=== PATIENT | male | born 1995 | race Two or more races ===

== ENCOUNTER 2025-08-17 13:08 | Outpatient (REF) | payer MEDICAID, SELFPAY ==
--- OUTSIDE RECORDS SUMMARY | 2025-08-16 13:00 | XMS_ITS | Encounter Summary ---
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 Phone Unavailable Primary Care Provider Unavailabl e Reason for Visit * Reason Comments Cough Sore Throat Nasal Congestion Earache Encounter Details Date Type Department Care Team (Late st Contact Info) Description 08/16/2025 1:00 PM EDT Office Visit [facility] [address] [place] [address] Sridevi Lomeli ANP [address] [place] [address] Sore throat (Primary Dx); Elevated blood pressure reading without diagnosis of hypertension; Dietary counseling; Exercise counseling; Nasal congestion; Prediabetes; Hepatic steatosis; Need for hepatitis B screening test; Screening examination for STI; Balanitis Social History Tobacco Use Types Packs/Day Years Used Date Smoking Tobacco: Never Smokeless Tobacco: Never Tobacco Cessation:Counseling Given: Not Answered Sex and Gender Information Value Date Recorded Sex Assigned at Male 08/16/2025 9:46 AM EDT Legal Sex Male 2:04 AM EDT Gender Identity Male 08/16/2025 9:46 AM EDT Sexual Orientation Straight 08/16/2025 9: 46 AM EDT documented as of this encounter Last Filed Vital Signs Vital Sign Reading Time Taken Comments Blood Pressure 144/100 08/16/2025 2:00 PM EDT Pulse 96 08/16/2025 1:10 PM EDT Temperature 36.7 C (98.1 F) 08/16/2025 1:10 PM EDT Respiratory Rate 18 08/16/2025 1:10 PM EDT Oxygen Saturation 98% 08/16/2025 1:10 PM EDT Inhaled Oxygen Concentration - - Weight 100 kg (220 lb 12.8 oz) 08/16/2025 1:10 P M EDT Height 167.6 cm (5' 6 ) 08/16/2025 1:10 PM EDT Body Mass Index 35.64 08/16/2025 1:10 PM EDT documented in this encounter Patient Instructions * Patient Instructions* PAMELA Arias - 08/16/2025 1:00 PM EDT Images from the original note were not included. Por favor, disminuya el consumo de hortencia y aumente el ejercicio regular. La presi n arterial ideal ser a < 130/80. Para cheema presi n arterial, se recomienda llevar mariam dieta baja en hortencia, hacer ejercicio con regularidad, mamie cheema presi??n arterial en casa y mamie los medicamentos seg??n lo recetado. Si fuma, disminuya o deje de fumar. Llame a la cl kimani si la presi n arterial es frecuentemente >150/90. Vaya a urgencias/llame al 911 si > 170/100 y tiene s ntomas chrissy dolor de sandy, cambios visuales, dolor en el pecho, estado mental alterado o dificultad para respirar. documented in this encounter Progress Notes * PAMELA Arias - 08/16/2025 1:00 PM EDT Flo Rowan is 30 y.o. patient here today for sick visit. HPI Presents to establish care today and for eval of cough, sore throat. PMH: preDM, HLD, fatty liver, herniated disc Last in primary care 8 mos ago Meds: used to take metformin but caused GI side effects - was also rx'd insulin to take if needed but he says this was stopped b/c BG was controlled Surgical hx: pilonidal cyst removed and R wrist pinched nerve surg Family hx: dad - DM, mom - DM If sexually active - partners: BC method if applicable: vasectomy Eye exam: due - is supposed to wear glasses Non-smoker TODAY: Day b/f yesterday started w/ nasal congestion, then yesterday w/ sneezing that would cause chest tightness and back pain, ears and throat pain, +Dry mouth No fever/chills, yes tired Did take amoxicillin 3 doses at home. 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 Not sure of name of cream. Here w/ Omer Mcfadden RMA provided Estonian interpretation. Review of Systems Constitutional: Positive for fatigue. Negative for chills and fever. HENT: Negative for sore throat. Respiratory: Negative for cough and shortness of breath. Cardiovascular: Negative for chest pain. Gastrointestinal: Negative for constipation and diarrhea. Endocrine: Negative for polydipsia, polyphagia and polyuria. Genitourinary: Negative for dysuria. Musculoskeletal: Positive for myalgias. Problem List[1] Objective BP (!) 144/100 (BP Location: Right arm, Patient Position: Sitting, BP Cuff Size: Large adult) Pulse 96 Temp 98.1 ??F (36.7 ??C) (Oral) Resp 18 Ht 5' 6 (1.676 m) Wt 220 lb 12.8 oz (100 kg) SpO2 98% BMI 35.64 kg/m?? BP remained elevated on repeat 144/100 Physical Exam Vitals reviewed. Constitutional: General: He is not in acute distress. Appearance: Normal appearance. He is obese. He is not ill-appearing. HENT: Head: Normocephalic and atraumatic. Right Ear: Tympanic membrane, ear canal and external ear normal. Left Ear: Tympanic membrane, ear canal and external ear normal. Nose: Congestion present. Mouth/Throat: Pharynx: Posterior oropharyngeal erythema present. No oropharyngeal exudate. Eyes: General: No scleral icterus. Extraocular Movements: Extraocular movements intact. Pupils: Pupils are equal, round, and reactive to light. Neck: Comments: Mild submandibular lymphadenopathy Cardiovascular: Rate and Rhythm: Normal rate and regular rhythm. Pulmonary: Effort: Pulmonary effort is normal. No accessory muscle usage or respiratory distress. Breath sounds: Normal breath sounds. Musculoskeletal: Right lower leg: No edema. Left lower leg: No edema. Neurological: Mental Status: He is alert and oriented to person, place, and time. Cranial Nerves: No cranial nerve deficit. Psychiatric: Mood and Affect: Mood normal. Behavior: Behavior normal. Diagnoses and all orders for this visit: Sore throat Rapid flu Rapid COVID & strep negative OTC measures - hydrate, motrin/acetaminophen for sore throat/fever PRN, cough drops, honey/tea, etc. Call for worsening sx, SOB/ROTHMAN, fever not responding to OTC meds, need for triage. Elevated blood pressure reading without diagnosis of hypertension Asked him to monitor BP at home, sent cuff to [facility] pharmacy, and to keep log for PCP appt (gave log) Low salt diet and increase exercise - Blood Pressure kit; 1 each 2 times daily. 08/17/25 Addendum pt returned to clinic fo BP check b/c BP machine on backorder. Will send to [facility] or similar. If BP remains elevated > 130/80, would recommend losartan 25mg once daily pending renal function labs, or amlodipine 5mg start. Dietary counseling As above Exercise counseling Office Visit on 08/16/2025 Component Date Value Ref Range Status Rapid COVID Ag 08/16/2025 Negative Final Rapid Strep A Screen 08/16/2025 Negative Negative, None Detected Final Influenza A 08/16/2025 Negative Negative, Indeterminate Final Influenza B 08/16/2025 Negative Negative, Indeterminate Final Diagnoses and all orders for this visit: Sore throat Rapid COVID/flu/strep negative OTC measures - hydrate, motrin/acetaminophen for sore throat/fever PRN, cough drops, honey/tea, etc. Call for worsening sx, SOB/ROTHMAN, fever not responding to OTC meds, need for triage. - acetaminophen (Tylenol Extra Strength) 500 MG tablet; Take 1-2 tabs as needed every 8 hours, do not take more than 6 tabs in 24 hrs - POCT Rapid COVID Ag - POCT rapid strep A manually resulted - Influenza A (ID NOW Rapid Molecular) - Influenza B (ID NOW Rapid Molecular) Elevated blood pressure reading without diagnosis of hypertension As above - Blood Pressure kit; 1 each 2 times daily. Dietary counseling As below Exercise counseling Lifestyle recommendations to improve heart health & lower cholesterol: be as active as able, ideally exercise 150min moderate intensity or 75min vigorous intensity weekly; increase intake of vegetables, fruits, whole grains, fish. Nasal congestion - fluticasone (Flonase) 50 MCG/ACT nasal spray; Administer 1-2 sprays into each nostril Once per day. Shake gently. Before first use, prime pump. After use, clean tip and replace cap. Prediabetes - Hemoglobin A1c; Future - Lipid Panel, Standard; Future - FREESTYLE LITE test strip; Use to test blood sugar 2 times daily - Lancets misc; Use to test blood sugar 2 times daily - Alcohol Swabs 70 % pads; Use to clean skin for blood sugar checks - Blood Glucose Monitoring Suppl (FreeStyle Cubero Lite) w/Device kit; Use to test blood sugar 2 times daily - Basic Metabolic Panel; Future - CBC auto differential; Future Hepatic steatosis - Hepatic Function Panel; Future Need for hepatitis B screening test - Hepatitis B Core Antibody, Total; Future - Hepatitis B Surface Antibody, Qualitative; Future - Hepatitis B surface antigen, EIA; Future Screening examination for STI - Hepatitis C Antibody with Reflex to HCV, RNA, Quantitative, Real-Time PCR; Future - HIV-1/2 Antigen and Antibodies, Fourth Generation, with Reflexes; Future - Syphilis Screen; Future Balanitis - clotrimazole (Lotrimin) 1 % cream; Apply topically 2 times daily for 28 days. [1] Patient Active Problem List Diagnosis Elevated blood pressure reading without diagnosis of hypertension documented in this encounter Plan of Treatment Upcoming Encounters Date Type Department Care Team (Late st Contact Info) Description 08/24/2025 2:00 PM EDT Clinical Support [facility] [address] [place] [phone] 09/23/2025 9:30 AM EDT Office Visit [facility] [address] [place] [phone] Enriqueta Rice MD [address] [place] [phone] Scheduled Orders Name Type Priority Associated Diagnoses Orde r Schedule Hepatitis B Core Antibody, Total Lab Routine Need for hepatitis B screening test Expected: 08/16/2025 (Approximate), Expires: 08/16/2026 Hepatitis B Surface Antibody, Qualitative Lab Routine Need for hepatitis B screening test Expected: 08/16/2025 (Approximate), Expires: 08/16/2026 Hepatitis B surface antigen, EIA Lab Routine Need for hepatitis B screening test Expected: 08/16/2025 (Approximate), Expires: 08/16/2026 Hepatitis C Antibody with Reflex to HCV, RNA, Quantitative, Real-Time PCR Lab Routine Screening examination for STI Expected: 08/16/2025 (Approximate), Expires: 08/16/2026 HIV-1/2 Antigen and Antibodies, Fourth Generation, with Reflexes Lab Routine Screening examination for STI Expected: 08/16/2025 (Approximate), Expires: 08/16/2026 Syphilis Screen Lab Routine Screening examination for STI Expected: 08/16/2025 (Approximate), Expires: 08/16/2026 documented as of this encounter Procedures Procedure Name Priority Date/Time Associated Diagnosis Comments CBC WITH AUTO DIFFERENTIAL Routine 08/17/2025 1:18 PM EDT Prediabetes HEMOGLOBIN A1C Routine 08/17/2025 1:18 PM EDT Prediabetes HEPATIC FUNCTION PANEL Routine 08/17/2025 1:18 PM EDT Hepatic steatosis LIPID PANEL, STANDARD Routine 08/17/2025 1:18 PM EDT Prediabetes BASIC METABOLIC PANEL Routine 08/17/2025 1:18 PM EDT Prediabetes POCT INFLUENZA B (ID NOW RAPID MOLECULAR) Routine 08/16/2025 1:51 PM EDT Sore throat POCT INFLUENZA A (ID NOW RAPID MOLECULAR) Routine 08/16/2025 1:51 PM EDT Sore throat POCT RAPID COVID ANTIGEN Routine 08/16/2025 1:51 PM EDT Sore throat POCT RAPID STREP A Routine 08/16/2025 1: 51 PM EDT Sore throat documented in this encounter Results * (ABNORMAL) CBC auto differential (08/17/2025 1:18 PM EDT) White Blood Count 6.0 4.8 - 10.8 X10*3/uL [facility] Red Blood Count 6.07(H) 4.60 - 5.80 X10*6/uL [facility] Hemoglobin 17.7 14.0 - 18.0 g/dl [facility] Hematocrit 51.5 42.0 - 52.0 % [facility] Mean Corpuscular Volume 84.8 80.0 - 98.0 fL [facility] Mean Corpuscular Hemoglobin 29.2 27.0 - 33.0 pg [facility] Mean Corpuscular HGB Conc 34.4 31.0 - 36.0 g/dl [facility] Red Cell Distribution Width 11.9 11.0 - 16.0 % [facility] Platelet Count 220 160 - 400 X10*3/uL [facility] Mean Platelet Volume 12.3 9.4 - 12.4 fL [facility] Neutrophils Percent Auto 47.9 45 - 73 % [facility] Imm Gran Pct Auto 0.2 0.0 - 0.4 % [facility] Lymphocytes Percent Auto 36.3 20 - 40 % [facility] Monocytes Percent Auto 11.4(H) 2 - 11 % [facility] Eosinophils Percent Auto 3.4 0 - 4 % [facility] Basophils Percent Auto 0.8 0 - 2 % [facility] NRBC Pct Auto 0.0 0.0 - 0.2 /100WBC [facility] Neutrophils Absolute Auto 2.9 2.0 - 8.3 x10*3/uL [facility] Imm Gran Abs Auto 0.01 0.00 - 0.03 X10*3/uL [facility] Lymphocytes Absolute Auto 2.2 1.2 - 4.9 X10*3/uL [facility] Monocytes Absolute Auto 0.7 0.1 - 1.2 X10*3/uL [facility] Eosinophils Absolute Auto 0.2 0.0 - 0.4 X10*3/uL [facility] Basophils Absolute Auto 0.1 0.0 - 0.2 X10*3/uL [facility] NRBC Abs Auto 0.000 0.0 - 0.012 X10*3/uL [facility] Blood Venous blood specimen / Unknown 08/17/2025 1:18 PM EDT 08/17/2025 4:04 PM EDT us Sridevi SANTIAGO LAB BLOOD ORDERABLES Final Resul t [facility] [address] [place] [phone] [phone] * (ABNORMAL) Basic Metabolic Panel (08/17/2025 1:18 PM EDT) Sodium 139 135 - 145 mmol/L [facility] Potassium 4.9 3.3 - 5.1 mmol/L [facility] Chloride 101 96 - 108 mmol/L [facility] Carbon Dioxide 31(H) 22 - 29 mmol/L [facility] Anion Gap 12 12 - 20 [facility] Urea Nitrogen (BUN) 12 9 - 16 mg/dL [facility] Creatinine, Serum 1.28 0.5 - 1.4 mg/dL [facility] Estimated Glomerular Filt Rate >60 [facility] Comment:Chronic Kidney Disea se: Estimated GFR < 60 mL/min/1.24m2Zhqsto Kidney Disease: Estimated GFR < 15 mL/min/1.73m2 Glucose 298(H) 60 - 115 mg/dL [facility] Calcium 9.6 8.4 - 10.2 mg/dL [facility] Blood Venous blood specimen / Unknown 08/17/2025 1:18 PM EDT 08/17/2025 4:04 PM EDT us Sridevi Lomeli ANP LAB BLOOD ORDERABLES Final Resul t Performing Organization Address [facility] Co de Phone Number [facility] [address] [place] [phone] * (ABNORMAL) Hepatic Function Panel (08/17/2025 1:18 PM EDT) Pathologist [facility] Bilirubin, Total 0.6 0.0 - 1.0 mg/dL [facility] Bilirubin, Direct 0.2 0.0 - 0.5 mg/dL [facility] Aspartate Amino Transferase 67(H) 5 - 37 U/L [facility] Alanine Aminotransferase 199(H) 0 - 40 U/L [facility] Total Protein 7.8 6.5 - 8.0 g/dL [facility] Albumin Level 4.9 3.5 - 5.0 g/dL [facility] Alkaline Phosphatase 82 39 - 117 U/L [facility] Blood Venous blood specimen / Unknown 08/17/2025 1:18 PM EDT 08/17/2025 4:04 PM EDT Sridevi Lomeli [facility] LAB BLOOD ORDERABLES Final Resul t Performing Organization Address [facility] Co de Phone Number [facility] [address] [place] [phone] * (ABNORMAL) Lipid Panel, Standard (08/17/2025 1:18 PM EDT) Triglycerides 315(H) <150 mg/dL [facility] Comment:Desirable Triglyceri de: less than 150 mg/dLBorderline High Triglyceride 150-199 mg/dLHigh Triglyceride: 200-499 mg/dLVery High Triglyceride: greater than or equal to 5OO mg/dL Cholesterol 174 <200 mg/dL [facility] Comment:Desirable Cholestero l: less than 200 mg/dLBorderline High Cholesterol: 200-239 mg/dLHigh Cholesterol: greater than 239 mg/dL LDL Cholesterol Calculated 82 <100 mg/dL [facility] Comment:Desirable LDL: less than 100 mg/dLNear Optimal/Above Optimal LDL: 110- 129 mg/dLBorderline High LDL: 130-159 mg/dLHigh LDL: 160-189 mg/dLVery High LDL: greater than or equal to 190 mg/dL HDL Cholesterol 29(L) >40 mg/dL [facility] Comment:Desirable HDL: great er than 40 mg/dL Note: This HDL assay may give artificially low results in patients with liver disease. Blood Venous blood specimen / Unknown 08/17/2025 1:18 PM EDT 08/17/2025 4:04 PM EDT Sridevi Lomeli ANP LAB BLOOD ORDERABLES Final Resul t Performing Organization Address [facility] de Phone Number [facility] [address] [place] [phone] * (ABNORMAL) Hemoglobin A1c (08/17/2025 1:18 PM EDT) Hemoglobin A1c 9.8(H) <6.0 % [facility] Comment:Hemoglobin A1C Refer ence Range Adults: 4.8 - 6.0 % Non diabetic: < 6.0 % Goal: < 7.0 %Additional Action Suggested: > 8.0 %Note: Hemoglobin A1c results are invalid for patients with abnormal amounts of HbF. Blood transfusions may impact the HbA1c concentration in the patient sample. Estimated Average Glucose 235 mg/dL [facility] Comment:eAG = Estimated ave rage glucose which is %A1C expressed asaverage glucose, using the formula of the B2Z-ZypyesaSnnhmox Glucose study (ADAG), Diabetes Care, Vol.31,#8,Jul. 2007 Blood Venous blood specimen / Unknown 08/17/2025 1:18 PM EDT 08/17/2025 4:04 PM EDT Sridevi Lomeli ANP LAB BLOOD ORDERABLES Final Resul t Performing Organization Address [facility] Co de Phone Number [facility] [address] [place] [phone] * Influenza B (ID NOW Rapid Molecular) (08/16/2025 1:51 PM EDT) [facility] Influenza B Negative Negative, Indeterminate [facility] Swab 08/16/2025 1:51 PM EDT us Sridevi Lomeli ANP POINT OF CARE TEST ENTER/EDIT OR DERABLES Final Result Performing Organization Address [facility] Co de Phone Number [facility] [address] [place] [phone] * Influenza A (ID NOW Rapid Molecular) (08/16/2025 1:51 PM EDT) [facility] Influenza A Negative Negative, Indeterminate [facility] Swab 08/16/2025 1:51 PM EDT us Sridevi Lomeli ANP POINT OF CARE TEST ENTER/EDIT OR DERABLES Final Result Performing Organization Address [facility] Co de Phone Number [facility] [address] [place] [phone] * POCT rapid strep A manually resulted (08/16/2025 1:51 PM EDT) [facility] Rapid Strep A Screen Negative Negative, None Detected [facility] Swab 08/16/2025 1:51 PM EDT Sridevi Lomeli ANP POINT OF CARE TEST ENTER/EDIT OR DERABLES Final Result Performing Organization Address [facility] Co de Phone Number [facility] [address] [place] [phone] * POCT Rapid COVID Ag (08/16/2025 1:51 PM EDT) [facility] Rapid COVID Ag Negative [facility] Swab 08/16/2025 1:51 PM EDT us Sridevi Lomeli ANP POINT OF CARE TEST ENTER/EDIT OR DERABLES Final Result [facility] [address] [place] [phone] [phone] documented in this encounter Visit Diagnoses Diagnosis Sore throat- Primary Acute pharyngitis Elevated blood pressure reading without diagnosis of hypertension Dietary counseling Dietary surveillance and counseling Exercise counseling Nasal congestion Other diseases of nasal cavity and sinuses Prediabetes Other abnormal glucose Hepatic steatosis Other chronic nonalcoholic liver disease Need for hepatitis B screening test Screening examination for STI Balanitis Balanoposthitis documented in this encounter
--- OUTSIDE RECORDS SUMMARY | 2025-08-17 11:20 | XMS_ITS | Encounter Summary ---
Author Organization [email or web address] Address [address] [place] [address] Care Team Providers Care Optical Engineer Name Role Phone Unavailable Primary Care Provider Unavailabl e Reason for Visit * Reason Comments Blood Pressure Check Encounter Details Date Type Department Care Team (Latest Contact Info) Description 08/17/2025 11:20 AM EDT Clinical Support [facility] WALK-[facility] [address] [id number] Fernanda Martell RN Elevated blood pressure reading without diagnosis of hypertension [R03.0] Social History Tobacco Use Types Packs/Day Years Used Date Smoking Tobacco: Never Smokeless Tobacco: Never Sex and Gender Information Value Date Recorded Sex Assigned at Male 08/16/2025 9:46 AM EDT Legal Sex Male 2:04 AM EDT Gender Identity Male 08/16/2025 9:46 AM EDT Sexual Orientation Straight 08/16/2025 9: 46 AM EDT documented as of this encounter Last Filed Vital Signs Vital Sign Reading Time Taken Comments Blood Pressure 157/100 08/17/2025 11:16 AM EDT Pulse 89 08/17/2025 11:15 AM EDT Temperature 36.5 C (97.7 F) 08/17/2025 11:15 AM EDT Respiratory Rate 18 08/17/2025 11:15 AM EDT Oxygen Saturation 97% 08/17/2025 11:15 AM EDT Inhaled Oxygen Concentration - - Weight 100 kg (220 lb 12.8 oz) 08/17/2025 11:15 AM EDT Height 167.6 cm (5' 6 ) 08/17/2025 11:15 AM EDT Body Mass Index 35.64 08/17/2025 11:15 AM EDT documented in this encounter Progress Notes * Fernanda Martell RN - 08/17/2025 11:20 AM EDT SUBJECTIVE: Pt arrived to [facility] to do BP check due to BP monitor sent to our pharmacy is currently on back order and pt was advised to return back to clinic in the morning to have their BP recheck. Pt was seen at [facility] on 08/16/25, BP noted 144/100 and recommendations made on that day were per [facility] provider Asked him to monitor BP at home, sent cuff to [facility] pharmacy, and to keep log for PCP appt (gave log), Low salt diet and increase exercise. Blood Pressure kit; 1 each 2 times daily. 08/17/25 Addendum pt returned to clinic fo BP check b/c BP machine on backorder. Will send to [facility] or similar. If BPremains elevated > 130/80, would recommend losartan 25mg once daily pending renal function labs,or amlodipine 5mg start. . Pt denies chest pain, sob, headaches, blurry vision dizziness, smoking or drinking alcohol. Pt reports they had water and a small cup of coffee with small amount of sugar.Pt reports they do no exercise daily but has been going on a walk recently. Pt reports they;re prediabetic but when they checked their sugar at home yesterday it was 372. Pt reports they eat soup, cooks their meat in the air fryer, vegetables, pineapples, juice and soda. Current Medications[1] Patient Active Problem List Diagnosis Date Noted Elevated blood pressure reading without diagnosis of hypertension 08/16/2025 Tobacco Use History[2] Social History Substance and Sexual Activity Alcohol Use Not on file Social History Substance and Sexual Activity Drug Use Not on file BP Readings from Last 4 Encounters: 08/16/25 (!) 144/100 Pulse Readings from Last 4 Encounters: 08/16/25 96 OBJECTIVE: Pt rx ( Blood Pressure kit; 1 each 2 times daily.), losartan (Cozaar) 25 MG tablet ( Take 1 tablet (25 mg) by mouth Once per day.) metFORMIN XR (Glucophage- XR) 500 MG 24 hr tablet ( Take 1 tab once daily with food for 1 week, then increase to 1 tab twice daily with meals. Do not crush, chew, or split.) ASSESSMENT: Pt alert, oriented and responds to questions appropriately. Achieve goal blood pressure of <140/90 or <130/80. LBP; 152/103, RBP: 157/100, T: 97.7F, O2: 97%, HR:89 RR: 18 PLAN: Today's findings reviewed with Sridevi Lomeli NP Blood Pressure kit; 1 each 2 times daily. Changes to medication regimen are BP machine on backorder. Will send to [facility] or similar. If BP remains elevated > 130/80, would recommend losartan 25mg once daily pending renal function labs, or amlodipine 5mg start. Pt advised to complete labs. Pt advised to continue taking medications as directed and reinforcement of lifestyle modifications including low sodium diet and exercise were reviewed.Pt is to return to clinic in 1 week for BP check with red team nurses. Pt verbalized understanding and agrees with plan. Future Appointments Date Time Provider Department Center 08/24/2025 2:00 PM [facility] RED TEAM NURSE MEDICINE [facility] 09/23/2025 9:30 AM Enriqueta Yi MD MEDICINE [facility] [1] Current Outpatient Medications Medication Sig Dispense Refill acetaminophen (Tylenol Extra Strength) 500 MG tablet Take 1-2 tabs as needed every 8 hours, do not take more than 6 tabs in 24 hrs 60 tablet 0 Alcohol Swabs 70 % pads Use to clean skin for blood sugar checks 100 each 0 Blood Glucose Monitoring Suppl (FreeStyle [place] Lite) w/Device kit Use to test blood sugar 2 times daily 1 kit 0 Blood Pressure kit 1 each 2 times daily. 1 kit 0 clotrimazole (Lotrimin) 1 % cream Apply topically 2 times daily for 28 days. 30 g 0 fluticasone (Flonase) 50 MCG/ACT nasal spray Administer 1-2 sprays into each nostril Once per day. Shake gently. Before first use, prime pump. After use, clean tip and replace cap. 16 g 0 FREESTYLE LITE test strip Use to test blood sugar 2 times daily 100 each 12 Lancets misc Use to test blood sugar 2 times daily 100 each 0 losartan (Cozaar) 25 MG tablet Take 1 tablet (25 mg) by mouth Once per day. 30 tablet 1 metFORMIN XR (Glucophage-XR) 500 MG 24 hr tablet Take 1 tab once daily with food for 1 week, then increase to 1 tab twice daily with meals. Do not crush, chew, or split. 180 tablet 1 No current facility-administered medications for this visit. [2] Social History Tobacco Use Smoking Status Never Smokeless Tobacco Never documented in this encounter Plan of Treatment Upcoming Encounters Date Type Department Care Team (Late st Contact Info) Description 08/24/2025 2:00 PM EDT Clinical Support [facility] MEDICINE [address] [place] [phone] 09/23/2025 9:30 AM EDT Office Visit [facility] [address] [place] [phone] Enriqueta Rice MD [address] [place] [phone] documented as of this encounter Visit Diagnoses Diagnosis Elevated blood pressure reading without diagnosis of hypertension [R03.0] Elevated blood pressure reading without diagnosis of hypertension documented in this encounter
[2025-08-17 16:11] LABS: MANUAL DIFF FLAG NO
[2025-08-17 16:13] LABS: Hematocrit 51.5 % (42.0-52.0); Hemoglobin 17.7 g/dl (14.0-18.0); Imm Gran Abs Auto 0.01 X10*3/uL (0.00-0.03); Imm Gran Pct Auto 0.2 % (0.0-0.4); Lymphocytes Absolute Auto 2.2 X10*3/uL (1.2-4.9); Mean Corpuscular HGB Conc 34.4 g/dl (31.0-36.0); Mean Corpuscular Hemoglobin 29.2 pg (27.0-33.0); Mean Corpuscular Volume 84.8 fL (80.0-98.0); NRBC Abs Auto 0.000 X10*3/uL (0.0-0.012); NRBC Pct Auto 0.0 /100WBC (0.0-0.2); Platelet Count 220 X10*3/uL (160-400); Red Blood Count 6.07 X10*6/uL (4.60-5.80); White Blood Count 6.0 X10*3/uL (4.8-10.8)
[2025-08-17 16:32] LABS: Hemoglobin A1C 375.4464 umol/L; Total Hemoglobin (HGBA1C) 4493.4588 umol/L
[2025-08-17 16:43] LABS: Alanine Aminotransferase 199 U/L (0-40); Albumin Level 4.9 g/dL (3.5-5.0); Alkaline Phosphatase 82 U/L (39-117); Anion Gap 12 (12-20); Aspartate Amino Transferase 67 U/L (5-37); Blood Urea Nitrogen 12 mg/dL (9-16); Calcium 9.6 mg/dL (8.4-10.2); Carbon Dioxide 31 mmol/L (22-29); Chloride 101 mmol/L (96-108); Cholesterol 174 mg/dL (<200); Estimated Glomerular Filt Rate > 60; HDL Cholesterol 29 mg/dL (>40); Potassium 4.9 mmol/L (3.3-5.1); Sodium 139 mmol/L (135-145); Total Protein 7.8 g/dL (6.5-8.0); Triglycerides 315 mg/dL (<150)
--- OUTSIDE RECORDS SUMMARY | 2025-08-17 17:06 | XMS_ITS | Encounter Summary ---
Author Organization [employer] Address [address] [facility] [address] [place] [address] Care Team Providers Care Business Operations Coordinator Name Role Phone Unavailable Primary Care Provider Unavailabl e Encounter Details Date Type Department Care Team (Latest Contact Info) Description 08/16/2025 Travel Social History Tobacco Use Types Packs/Day Years Used Date Smoking Tobacco: Never Smokeless Tobacco: Never Sex and Gender Information Value Date Recorded Sex Assigned at Male 08/16/2025 9:46 AM EDT Legal Sex Male 2:04 AM EDT Gender Identity Male 08/16/2025 9:46 AM EDT Sexual Orientation Straight 08/16/2025 9: 46 AM EDT documented as of this encounter Plan of Treatment Upcoming Encounters Date Type Department Care Team (Late st Contact Info) Description 08/24/2025 2:00 PM EDT Clinical Support [facility] [address] [place] [phone] 09/23/2025 9:30 AM EDT Office Visit [facility] [address] [place] [phone] Enriqueta Rice MD [address] [place] [phone] documented as of this encounter Visit Diagnoses Not on filedocumented in this encounter
--- OUTSIDE RECORDS SUMMARY | 2025-08-17 17:06 | XMS_ITS | Encounter Summary ---
Author Organization [employer] Address [address] [facility] [address] [place] [address] Care Team Providers Care Intake Worker Name Role Phone Unavailable Primary Care Provider Unavailabl e Encounter Details Date Type Department Care Team (Latest Contact Info) Description 08/17/2025 Travel Social History Tobacco Use Types Packs/Day [...] Description 08/24/2025 2:00 PM EDT Clinical Support [facility] MED[facility] [address] [place] [phone] 09/23/2025 9:30 AM EDT Office Visit [facility] [address] [place] [phone] Enriqueta Rice MD [address] [place] [phone] documented as of this encounter Visit Diagnoses Not on filedocumented in this encounter
--- OUTSIDE RECORDS SUMMARY | 2025-08-17 17:06 | XMS_ITS | Encounter Summary ---
Author Organization [employer] Address [address] [facility] [address] [place] [address] Care Team Providers Care Steak Sauce Maker Name Role Phone Unavailable Primary Care Provider Unavailabl e Reason for Visit * Reason Onset Date Comments BP cuff rx 08/16/2025 Encounter Details Date Type Department Care Team (Late st Contact Info) Description 08/16/2025 Telephone [facility] [place] [address] [place] [address] Sridevi Lomeli ANP [address] [place] [address] BP cuff rx Social History Tobacco Use Types Packs/Day Years Used Date Smoking Tobacco: Never Smokeless Tobacco: Never Sex and Gender Information Value Date Recorded Sex Assigned at Male 08/16/2025 9:46 AM EDT Legal Sex Male 2:04 AM EDT Gender Identity Male 08/16/2025 9:46 AM EDT Sexual Orientation Straight 08/16/2025 9: 46 AM EDT documented as of this encounter Miscellaneous Notes * Telephone Encounter - Maria Luz Peres RN - 08/16/2025 6:04 PM EDT Pt arrived to walk in [facility] during extended hours from pharmacy. Per Laura in pharmacy, BP cuffs are on back order. Pt was placed on waiting list to be called when they arrive. Pt concerned about BP being elevated at today's appt. Requesting if cuff rx could be sent to a different pharmacy. States he plans to come in to clinic in the morning to see if he can get his BP checked. documented in this encounter Plan of Treatment Upcoming Encounters Date Type Department Care Team (Late st Contact Info) Description 08/24/2025 2:00 PM EDT Clinical Support [address] [address] 09/23/2025 9:30 AM EDT Office Visit [address] [address] Enriqueta Rice MD [address] [place] [phone] documented as of this encounter Visit Diagnoses Not on filedocumented in this encounter
--- OUTSIDE RECORDS SUMMARY | 2025-08-17 17:06 | XMS_ITS | Encounter Summary ---
Author Organization [employer] Address [address] [place] [address] Care Team Providers Care Product Grader Name Role Phone Unavailable Primary Care Provider Unavailabl e Encounter Details Date Type Department Care Team (Late st Contact Info) Description 08/17/2025 Orders Only [facility] MEDICINE [address] [place] [address] Sridevi Lomeli ANP [address] [place] [address] Hypertension associated with diabetes (CMS/HCC) (Primary Dx) Social History Tobacco Use Types Packs/Day Years Used Date Smoking Tobacco: Never Smokeless Tobacco: Never Sex and Gender Information Value Date Recorded Sex Assigned at Male 08/16/2025 9:46 AM EDT Legal Sex Male 2:04 AM EDT Gender Identity Male 08/16/2025 9:46 AM EDT Sexual Orientation Straight 08/16/2025 9: 46 AM EDT documented as of this encounter Progress Notes * PAMELA Arias - 08/17/2025 12:49 PM EDT Spoke with walk-in center nurse reports patient there for blood pressure check. [id number] glucose also noted to be 372 (by pt) and blood pressure remains elevated 150s over 100 or so. Recommend initiate metformin XR 500 mg once daily after 1 week increase to twice daily and mg once daily.. Patient will be reminded to get labs done so we can check his renal function andelectrolytes and his A1c which I am anticipating will be high. Depending on A1c can consider Mounjaro versus Tresiba start if needed. BP check 1 week, follow-up w/ new PCP as planned Future Appointments Date Time Provider Department Center 08/24/2025 2:00 PM [facility] RED TEAM NURSE MEDICINE [facility] 09/23/2025 9:30 AM Enriqueta Yi MD MEDICINE [facility] documented in this encounter Plan of Treatment Upcoming Encounters Date Type Department Care Team (Late st Contact Info) Description 08/24/2025 2:00 PM EDT Clinical Support [address] [address] 09/23/2025 9:30 AM EDT Office Visit [address] [address] Enriqueta Rice MD [address] [place] [phone] documented as of this encounter Visit Diagnoses Diagnosis Hypertension associated with diabetes (CMS/HCC)- Primary Unspecified essential hypertension documented in this encounter
--- OUTSIDE RECORDS SUMMARY | 2025-08-17 17:06 | XMS_ITS | Clinical Summary ---
Author Organization [employer] Address [address] [place] [address] Care Team Providers Care Deputy Sheriff/Investigator Name Role Phone Unavailable Primary Care Provider Unavailabl e Allergies Active Allergy Reactions Criticality Noted Date Comments Ciprofloxacin Rash Medium 08/16/2025 Medications Blood Pressure kitIndications:El evated blood pressure reading without diagnosis of hypertension 1 each 2 times daily. 1 kit 5 08/16/20 26 Active fluticasone (Flonase) 50 MCG/ACT nasal sprayIndications: Nasal congestion Administer 1-2 sprays into each nostril Once per day. Shake gently. Before first use, prime pump. After use, clean tip and replace cap. 16 g 5 09/15/20 25 Active acetaminophen (Tylenol Extra Strength) 500 MG tabletIndications :Sore throat Take 1-2 tabs as needed every 8 hours, do not take more than 6 tabs in 24 hrs 60 tablet 5 Active FREESTYLE LITE test stripIndications: Prediabetes Use to test blood sugar 2 times daily 100 each 12 5 08/16/20 26 Active Lancets miscIndications:P rediabetes Use to test blood sugar 2 times daily 100 each 5 Active Alcohol Swabs 70 % padsIndications:P rediabetes Use to clean skin for blood sugar checks 100 each 5 Active Blood Glucose Monitoring Suppl (FreeStyle [place] Lite) w/Device kitIndications:Pr ediabetes Use to test blood sugar 2 times daily 1 kit 5 Active clotrimazole (Lotrimin) 1 % creamIndications: Balanitis Apply topically 2 times daily for 28 days. 30 g 5 09/13/20 25 Active metFORMIN XR (Glucophage-XR) 500 MG 24 hr tabletIndications :Hypertension associated with diabetes (CMS/HCC) Take 1 tab once daily with food for 1 week, then increase to 1 tab twice daily with meals. Do not crush, chew, or split. 180 tablet 1 5 Active losartan (Cozaar) 25 MG tabletIndications :Hypertension associated with diabetes (CMS/HCC) Take 1 tablet (25 mg) by mouth Once per day. 30 tablet 1 5 Active Active Problems Problem Noted Date Diagnosed Date Elevated blood pressure read ing without diagnosis of hypertension 08/16/2025 Encounters Date Type Department Care Team Description 08/17/2025 11:20 AM EDT Clinical Support [facility] [address] [place] [phone] Fernanda Martell RN Elevated blood pressure reading without diagnosis of hypertension [R03.0] 08/17/2025 Travel 08/17/2025 Orders Only [address] [id number] Sridevi Lomeli ANP Hypertension associated with diabetes (CMS/HCC) (Primary Dx) 08/16/2025 1:00 PM EDT Office Visit [facility] [address] [phone] Sridevi Lomeli ANP Sore throat (Primary Dx); Elevated blood pressure reading without diagnosis of hypertension; Dietary counseling; Exercise counseling; Nasal congestion; Prediabetes; Hepatic steatosis; Need for hepatitis B screening test; Screening examination for STI; Balanitis 08/16/[address] [facility] [address] [phone] Sridevi Lomeli ANP BP cuff rx 08/16/2025 Travel 06/14/[address] [phone] Chu Boss MD 05/31/[address] [phone] Chu Boss MD from Last 3 Months Family History Medical History Relation Name Comments Diabetes type II Father Diabetes type II Mother Relation Name Status Comments Father Mother Social History Tobacco Use Types Packs/Day Years Used Date Smoking Tobacco: Never Smokeless Tobacco: Never Tobacco Cessation:Counseling Given: Not Answered Sex and Gender Information Value Date Recorded Sex Assigned at Male 08/16/2025 9:46 AM EDT Legal Sex Male 2:04 AM EDT Gender Identity Male 08/16/2025 9:46 AM EDT Sexual Orientation Straight 08/16/2025 9: 46 AM EDT Last Filed Vital Signs Vital Sign Reading [...] Mass Index 35.64 08/17/2025 11:15 AM EDT Plan of Treatment Upcoming Encounters Date Type Department Care Team (Late st Contact Info) Description 08/24/2025 2:00 PM EDT Clinical Support [facility] [address] [place] [phone] 09/23/2025 9:30 AM EDT Office Visit [facility] [address] [place] [phone] Enriqueta Rice MD [address] [place] [phone] Health Maintenance Due Date Last Done Comments Depression Screening 1994 Diabetes: Hemoglobin A1C 1994 08/17/2025 HIV Screening 1994 Lipid Panel 1994 08/17/2025 SDOH Screening 1994 Disability Screening 1994 Diabetes: Foot Exam 2004 Eye Exam 2004 Alcohol/Substance Use Screening 2006 Family Planning (PISQ) 2009 HPV Vaccines (1 - Male 3-dos e series) 2009 Hepatitis C Screening 2012 DTaP/Tdap/Td Vaccines (1 - Tdap) 2013 Diabetes: Urine Protein Screening 2013 Hepatitis A Vaccines (1 of 2 - Risk 2-dose series) 2013 Hepatitis B Vaccines (1 of 3 - 19+ 3-dose series) 2013 Pneumococcal Vaccine: Pediat rics (0 to 5 Years) and At-Risk Patients (6 to 49) Years (1 of 2 - PCV) 2013 COVID-19 Vaccine (1 - 2023-2 5 season) 2025 Influenza Vaccine (#1) 2025 10/22/2014 Tobacco Screening 08/16/2026 08/16/2025 Zoster Vaccines (1 of 2) 2044 RSV Patients and Pa tients Aged 60 years or older (1 - 1-dose 75+ series) 2069 HIB Vaccines Aged Out No longer eligi ble based on patient's age to complete this topic IPV Vaccines Aged Out No longer eligi ble based on patient's age to complete this topic Meningococcal B Vaccine Aged Out No l onger eligible based on patient's age to complete this topic Meningococcal Vaccine Aged Out No atul micki eligible based on patient's age to complete this topic RSV under 20 months Aged Out No longe r eligible based on patient's age to complete this topic Rotavirus Vaccines Aged Out No longer eligible based on patient's age to complete this topic Procedures Procedure Name Priority Date/Time Associated Diagnosis Comments CBC WITH AUTO DIFFERENTIAL Routine 08/17/2025 1:18 PM EDT Prediabetes BASIC METABOLIC PANEL Routine 08/17/2025 1:18 PM EDT Prediabetes HEPATIC FUNCTION PANEL Routine 08/17/2025 1:18 PM EDT Hepatic steatosis LIPID PANEL, STANDARD Routine 08/17/2025 1:18 PM EDT Prediabetes HEMOGLOBIN A1C Routine 08/17/2025 1:18 PM EDT Prediabetes POCT INFLUENZA B (ID NOW RAPID MOLECULAR) Routine 08/16/2025 1:51 PM EDT Sore throat POCT INFLUENZA A (ID NOW RAPID MOLECULAR) Routine 08/16/2025 1:51 PM EDT Sore throat POCT RAPID STREP A Routine 08/16/2025 1: 51 PM EDT Sore throat POCT RAPID COVID ANTIGEN Routine 08/16/2025 1:51 PM EDT Sore throat from Last 3 Months Results * (ABNORMAL) CBC auto differential (08/17/2025 1:18 PM EDT) White Blood Count 6.0 4.8 - 10.8 X10*3/uL [facility] Red Blood Count 6.07(H) 4.60 - 5.80 X10*6/uL [facility] Hemoglobin 17.7 14.0 - 18.0 g/dl [facility] Hematocrit 51.5 42.0 - 52.0 % [facility] Mean Corpuscular Volume 84.8 80.0 - 98.0 fL [facility] Mean Corpuscular Hemoglobin 29.2 27.0 - 33.0 pg [facility] Mean Corpuscular HGB Conc 34.4 31.0 - 36.0 g/dl [facility] Red Cell Distribution Width 11.9 11.0 - 16.0 % [facility] Platelet Count 220 160 - 400 X10*3/uL [facility] Mean Platelet Volume 12.3 9.4 - 12.4 fL [facility] Neutrophils Percent Auto 47.9 45 - 73 % [facility] Imm Gran Pct Auto 0.2 0.0 - 0.4 % [facility] Lymphocytes Percent Auto 36.3 20 - 40 % [facility] Monocytes Percent Auto 11.4(H) 2 - 11 % [facility] Eosinophils Percent Auto 3.4 0 - 4 % [facility] Basophils Percent Auto 0.8 0 - 2 % [facility] NRBC Pct Auto 0.0 0.0 - 0.2 /100WBC [facility] Neutrophils Absolute Auto 2.9 2.0 - 8.3 x10*3/uL [facility] Imm Gran Abs Auto 0.01 0.00 - 0.03 X10*3/uL [facility] Lymphocytes Absolute Auto 2.2 1.2 - 4.9 X10*3/uL [facility] Monocytes Absolute Auto 0.7 0.1 - 1.2 X10*3/uL [facility] Eosinophils Absolute Auto 0.2 0.0 - 0.4 X10*3/uL [facility] Basophils Absolute Auto 0.1 0.0 - 0.2 X10*3/uL [facility] NRBC Abs Auto 0.000 0.0 - 0.012 X10*3/uL [facility] Blood Venous blood specimen / Unknown 08/17/2025 1:18 PM EDT 08/17/2025 4:04 PM EDT [facility] LAB BLOOD ORDERABLES Final Resul t [facility] [address] [place] [phone] * (ABNORMAL) Hemoglobin A1c (08/17/2025 1:18 PM EDT) Hemoglobin A1c 9.8(H) <6.0 % [facility] Comment:Hemoglobin A1C Refer ence Range Adults: 4.8 - 6.0 % Non diabetic: < 6.0 % Goal: < 7.0 %Additional Action Suggested: > 8.0 %Note: Hemoglobin A1c results are invalid for patients with abnormal amounts of HbF. Blood transfusions may impact the HbA1c concentration in the patient sample. Estimated Average Glucose 235 mg/dL [facility] Comment:eAG = Estimated ave rage glucose which is %A1C expressed asaverage glucose, using the formula of the [id number] Glucose study (ADAG), Diabetes Care, Vol.31,#8,2007 Blood Venous blood specimen / Unknown 08/17/2025 1:18 PM EDT 08/17/2025 4:04 PM EDT Sridevi Lomeli [facility] LAB BLOOD ORDERABLES Final Resul t Performing Organization Address [facility] Phone Number [facility] [address] [place] [phone] * (ABNORMAL) Hepatic Function Panel (08/17/2025 1:18 PM EDT) Bilirubin, Total 0.6 0.0 - 1.0 mg/dL [facility] Bilirubin, Direct 0.2 0.0 - 0.5 mg/dL [facility] Aspartate Amino Transferase 67(H) 5 - 37 U/L [facility] Alanine Aminotransferase 199(H) 0 - 40 U/L [facility] Total Protein 7.8 6.5 - 8.0 g/dL [facility] Albumin Level 4.9 3.5 - 5.0 g/dL [facility] Alkaline Phosphatase 82 39 - 117 U/L [facility] Blood Venous blood specimen / Unknown 08/17/2025 1:18 PM EDT 08/17/2025 4:04 PM EDT Sridevi Lomeli [facility] LAB BLOOD ORDERABLES Final Resul t Performing Organization Address [facility] Co de Phone Number [facility] [address] [place] [phone] * (ABNORMAL) Lipid Panel, Standard (08/17/2025 1:18 PM EDT) Triglycerides 315(H) <150 mg/dL [facility] Comment:Desirable Triglyceri de: less than 150 mg/dLBorderline High Triglyceride 150-199 mg/dLHigh Triglyceride: 200-499 mg/dLVery High Triglyceride: greater than or equal to 5OO mg/dL Cholesterol 174 <200 mg/dL [facility] Comment:Desirable Cholestero l: less than 200 mg/dLBorderline High Cholesterol: 200-239 mg/dLHigh Cholesterol: greater than 239 mg/dL LDL Cholesterol Calculated 82 <100 mg/dL [facility] Comment:Desirable LDL: less than 100 mg/dLNear Optimal/Above Optimal LDL: 110- 129 mg/dLBorderline High LDL: 130-159 mg/dLHigh LDL: 160-189 mg/dLVery High LDL: greater than or equal to 190 mg/dL HDL Cholesterol 29(L) >40 mg/dL [facility] Comment:Desirable HDL: great er than 40 mg/dL Note: This HDL assay may give artificially low results in patients with liver disease. Blood Venous blood specimen / Unknown 08/17/2025 1:18 PM EDT 08/17/2025 4:04 PM EDT us Sridevi Lomeli [facility] LAB BLOOD ORDERABLES Final Resul t [facility] [address] [place] [phone] * (ABNORMAL) Basic Metabolic Panel (08/17/2025 1:18 PM EDT) Sodium 139 135 - 145 mmol/L [facility] Potassium 4.9 3.3 - 5.1 mmol/L [facility] Chloride 101 96 - 108 mmol/L [facility] Carbon Dioxide 31(H) 22 - 29 mmol/L [facility] Anion Gap 12 12 - 20 [facility] Urea Nitrogen (BUN) 12 9 - 16 mg/dL [facility] Creatinine, Serum 1.28 0.5 - 1.4 mg/dL [facility] Estimated Glomerular Filt Rate >60 [facility] Comment:Chronic Kidney Disea se: Estimated GFR < 60 mL/min/[id number] Kidney Disease: Estimated GFR < 15 mL/min/1.73m2 Glucose 298(H) 60 - 115 mg/dL [facility] Calcium 9.6 8.4 - 10.2 mg/dL [facility] Blood Venous blood specimen / Unknown 08/17/2025 1:18 PM EDT 08/17/2025 4:04 PM EDT us Sridevi Lomeli ANP LAB BLOOD ORDERABLES Final Resul t Performing Organization Address [facility] Co de Phone Number [facility] [address] [place] [phone] * Influenza B (ID NOW Rapid Molecular) (08/16/2025 1:51 PM EDT) Influenza B Negative Negative, Indeterminate [facility] Swab 08/16/2025 1:51 PM EDT us Sridevi Lomeli ANP POINT OF CARE TEST ENTER/EDIT OR DERABLES Final Result Performing Organization Address [facility] Co de Phone Number [facility] [address] [place] [phone] * Influenza A (ID NOW Rapid Molecular) (08/16/2025 1:51 PM EDT) [facility] Influenza A Negative Negative, Indeterminate [facility] Swab 08/16/2025 1:51 PM EDT us Sridevi Lomeli ANP POINT OF CARE TEST ENTER/EDIT OR DERABLES Final Result Performing Organization Address [facility] Co de Phone Number [facility] [address] [place] [phone] * POCT Rapid COVID Ag (08/16/2025 1:51 PM EDT) Rapid COVID Ag Negative [facility] Swab 08/16/2025 1:51 PM EDT us Sridevi Lomeli ANP POINT OF CARE TEST ENTER/EDIT OR DERABLES Final Result Performing Organization Address [facility] Co de Phone Number [facility] [address] [place] [phone] * POCT rapid strep A manually resulted (08/16/2025 1:51 PM EDT) Rapid Strep A Screen Negative Negative, None Detected [facility] Swab 08/16/2025 1:51 PM EDT us Sridevi Lomeli ANP POINT OF CARE TEST ENTER/EDIT OR DERABLES Final Result [facility] [address] [place] [phone] from Last 3 Months Insurance [facility]
[2025-08-19 05:00] LABS: Syphilis Screen Nonreactive (Nonreactive)
[2025-08-19 05:24] LABS: HBS Num1 2.60 mIU/mL (0-7.99); HBc Num1 0.04 S/CO (0.00-0.79); HBsAGNum1 0.42 S/CO (0.00-0.99); HIV Num 1 0.04 S/CO (0.00-0.99); Hepatitis B Surface Antigen Negative (Negative); ~HepC Num1 0.08 S/CO (0.00-0.79); ~Hepatitis B Surface Antibody NONREACTIVE (Nonreactive); ~Hepatitis C Antibody Nonreactive (Nonreactive)
== END 2025-08-17 13:09 | disposition home or self-care (01) ==
LOC: HO.HHCL 13:08
PROVIDERS: PCP Nurse Practitioner Primary Care; Visit Provider Nurse Practitioner Primary Care
DX: Z11.3 Encounter for screening for infections with a predominantly sexual mode of transmission (principal); Z11.59 Encounter for screening for other viral diseases; Z11.4 Encounter for screening for human immunodeficiency virus [HIV]; R73.03 Prediabetes; K76.0 Fatty (change of) liver, not elsewhere classified
CPT/HCPCS: 36415; 80048; 80061; 80076; 83036; 85025; 86704; 86706; 86780; 86803; 87340; 87389

== ENCOUNTER 2025-10-06 13:57 | Outpatient (AMB) | payer MEDICAID, SELFPAY ==
[2025-10-06 14:21] VITALS: BMI 36.6
--- NOTE | 2025-10-06 14:21 | A.OFFVIS_ITS ---
Vital Signs 10/06/25 14:21 Height 5 ft 5 in Weight 220 lb BMI 36.6 Intake Visit Reasons: Chronic pain of both feet, Type 2 Diabetes Mellitu Intake Note: Flo is a 30 year old male who presents today as a new patient for an evaluation of his chronic foot pain and diabetic foot exam. He states he has checked his glucose and read 119 as of this morning and his last reported A1c was 9.8%. Patient experiences numbness in both his feet and he notices when he stands for a long period of time he has pain in the plantar aspect of his foot. Patient has history of previous fractures in his right foot and he experiences back pain without injuries. he is currently not taking gabapentin. Patient reports he has had the pain in his feet for about 3-4 years and he has had t herapy for his back and feet when he was living in [place] and he occasionally takes ibuprofen as needed to help manage his pain symptoms. Day Care Assistant Name: [id number] Allergies No Known Allergies Allergy (Verified 10/06/25 14:21) HPI HPI Chronic pain of both feet, Type 2 Diabetes Mellitu: Details: 30-year-old male with past medical history of diabetes mellitus type 2 and hypertension who presents for bilateral foot pain. The patient states that he has had chronic heel pain and arch pain for several years. He describes the pain worse to the middle of his arch and radiates back towards his heel. Pain is worse after standing for prolonged periods of time. He has tried switching shoes to more supportive sneakers which have helped improve his pain. Patient denies complaints of burning numbness or tingling to his feet. He notes a history of left big toe nail infection which required him to go to the emergency room every day removed the nail in its entirety. Social: The patient states he works standing most of the day Review of Systems Const All systems reviewed & are unremarkable except as noted in HPI and below Physical Exam Vital Signs: BMI result Body Mass Index 36.6 Extrem Other: *Bilateral Lower Extremity Focused Diabetic Foot Exam Vascular: DP/PT 2/4, CFT<3s to digits, TG warm to cool, no pedal edema, pedal hair present Derm: Skin: No open lesions, ulcerations, or calluses. Interdigital spaces: Clear, no maceration or fungal infection. Nails: Left hallux medial and lateral nail borders are mildly ingrown. There are no signs of edema erythema drainage or clinical signs of infection. Neuro: [place]-gareth monofilament (10g) test 10/10 intact to right foot, 10/10 intact to left foot. Msk: Moderate-high arch foot type. Neutral calcaneus on weight-bearing. Bilateral Ankle 0 degrees of dorsiflexion on knee extension, 3-4 degrees on knee flexion. Footwear Assessment: Shoes inspected; appropriate fit, no excessive wear, or foreign objects noted. Assessment & Plan Assessment & Plan (1) Plantar fasciitis, bilateral: Code(s): M72.2 - Plantar fascial fibromatosis Category: Medical Plan: * Discussed etiology of the patient's foot pain. Differential diagnosis includes plantar fasciitis, neuritis, tendinitis. * Patient educated on the nature and etiology of plantar fasciitis, which involves inflammation and microtearing of the plantar fascia due to repetitive stress and overuse. * Rx X-ray 3V bilateral feet * The patient was counseled on conservative management of plantar fasciitis, including daily stretching exercises targeting the plantar fascia and Achilles tendon, use of supportive and properly fitting footwear, and consideration of custom or prefabricated orthotics to improve foot biomechanics. * Discussed that if symptoms persist despite these measures, further interventions such as corticosteroid injections may be considered only after he receives better glycemic control. * Instructed the patient on home stretching and range of motion exercises including calf-stretches, frozen water bottle therapy, band-therapy. A handout was dispensed. * Recommended supportive shoe-wear with arch-supports to avoid increased loading on the patient's plantar fascia band. Recommended Powerstep. 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 Explained that their high arch foot type (Cavus feet) can lead to altered weight distribution, resulting in increased pressure on the heel and forefoot. Patients may experience symptoms such as pain, callus formation, tendinitis, instability, lateral ankle sprains, and, in some cases, development of digital deformities (e.g., claw toes or hammertoes). Discussed the importance of shoe type with heel and forefoot padding and support.. (3) Paronychia of great toe, left: Code(s): L03.032 - Cellulitis of left toe Category: Medical Plan: * We will continue to monitor. * The patient was advised to present if he is source notice increased pain or any signs of infection. Orders: Orders XR Foot Yovani 3V Today M72.2 - Plantar fascial fibromatosis Medications: New meloxicam 15 mg PO DAILY 30 tabs 1RF Foot pain M72.2 - Plantar fascial fibromatosis Coding Level of Care Code New Pt Level 4 (57230) Diagnoses Plantar fasciitis, bilateral M72.2 Cavus deformity of both feet Q66.71; Q66.72 Paronychia of great toe, left L03.032 Time Spent (min) 30
--- OUTSIDE RECORDS SUMMARY | 2025-10-06 17:09 | XMS_ITS | Clinical Summary ---
Author Organization [employer] Address [address] [place] [address] Care Team Providers Care Implementation Specialist Payroll Name Role Phone Enriqueta Rice MD Primary Care Provide r Allergies Active Allergy Reactions Criticality Noted Date Comments Ciprofloxacin Rash Medium 08/16/2025 Medications Blood Pressure kitIndications:E levated blood pressure reading without diagnosis of hypertension 1 each 2 times daily. 1 kit 5 08/16/20 26 Active fluticasone (Flonase) 50 MCG/ACT nasal sprayIndications :Nasal congestion Administer 1-2 sprays into each nostril Once per day. Shake gently. Before first use, prime pump. After use, clean tip and replace cap. 16 g 5 Active acetaminophen (Tylenol Extra Strength) 500 MG tabletIndication s:Sore throat Take 1-2 tabs as needed every 8 hours, do not take more than 6 tabs in 24 hrs 60 tablet 5 Active FREESTYLE LITE test stripIndications :Prediabetes Use to test blood sugar 2 times daily 100 each 12 5 08/16/20 26 Active Lancets miscIndications: Prediabetes Use to test blood sugar 2 times daily 100 each 5 Active Alcohol Swabs 70 % padsIndications: Prediabetes Use to clean skin for blood sugar checks 100 each 5 Active Blood Glucose Monitoring Suppl (FreeStyle [place] Lite) w/Device kitIndications:P rediabetes Use to test blood sugar 2 times daily 1 kit 5 Active metFORMIN XR (Glucophage-XR) 500 MG 24 hr tabletIndication s:Hypertension associated with diabetes (HCC) Take 1 tab once daily with food for 1 week, then increase to 1 tab twice daily with meals. Do not crush, chew, or split. 180 tablet 1 5 Active Tirzepatide (Mounjaro) 2.5 MG/0.5ML solution auto-injectorInd ications:New onset type 2 diabetes mellitus (HCC),Hypertensi on associated with diabetes (HCC) Inject 2.5 mg under the skin 1 (one) time per week. 2 mL 5 Active losartan (Cozaar) 50 MG tabletIndication s:Hypertension associated with diabetes (HCC) TOME 1 TABLETA POR VIA ORAL TODOS [place] ALLEN 90 tablet 5 Active FREESTYLE LITE test stripIndications :Type 2 diabetes mellitus with hyperglycemia, without long-term current use of insulin ([facility]) Use to test blood sugar 3 times daily 100 each 12 5 09/23/20 26 Active Tirzepatide (Mounjaro) 5 MG/0.5ML solution auto-injectorInd ications:Type 2 diabetes mellitus with hyperglycemia, without long-term current use of insulin ([facility]) Inject 5 mg under the skin 1 (one) time per week. 2 mL 2 5 Active clotrimazole (Lotrimin) 1 % creamIndications :Balanitis Apply topically 2 times daily for 28 days. 30 g 5 09/13/20 25 Active Problems Problem Noted Date Diagnosed Date Type 2 diabetes mellitus wit h hyperglycemia, without long-term current use of insulin 09/23/2025 Chronic pain of both feet 09/23/2025 Bilateral carpal tunnel syndrome 09/23/2025 Hypertension associated with diabetes 08/19/2025 Elevated blood pressure read ing without diagnosis of hypertension 08/16/2025 Encounters Date Type Department Care Team Description 09/23/2025 9:30 AM EDT Office Visit [facility] MEDICINE [address] [place] [phone] Enriqueta Rice MD Bilateral carpal tunnel syndrome (Primary Dx); Type 2 diabetes mellitus with hyperglycemia, without long-term current use of insulin ([facility]); Chronic pain of both feet 09/23/2025 Travel 09/22/[address] [phone] Enriqueta Rice MD Chart Prep 09/21/2025 Refill [facility] [address] [place] [phone] Sridevi Lomeli ANP Nasal congestion 09/16/2025 Patient Outreach [facility] PEDS [address] [place], [place] [phone] Enriqueta Rice MD Pre-visit Planning (SDOH unable to reach [facility] ) 08/19/[address] [phone] Sridevi Lomeli ANP Hypertension associated with diabetes (CMS/HCC) 08/19/2025 Results Follow-Up [address] [address] Sridevi Lomeli ANP Hemoglobin A1c, Lipid Panel, Standard, Hepatic Function Panel, Additional followed-up results: 12 08/17/2025 11:20 AM EDT Clinical Support [facility] [address] [place] [phone] Fernanda Martell RN Elevated blood pressure reading without diagnosis of hypertension [R03.0] 08/17/2025 Travel 08/17/2025 Orders Only [address] [address] Sridevi Lomeli ANP Hypertension associated with diabetes (CMS/HCC) (Primary Dx) 08/16/2025 1:00 PM EDT Office Visit [facility] [address] [place] [phone] Sridevi Lomeli ANP Sore throat (Primary Dx); Elevated blood pressure reading without diagnosis of hypertension; Dietary counseling; Exercise counseling; Nasal congestion; Prediabetes; Hepatic steatosis; Need for hepatitis B screening test; Screening examination for STI; Balanitis; Hypertension associated with diabetes (CMS/HCC); Need for hepatitis B vaccination 08/16/2025 Telephone [facility] [address] [place] [address] [phone] Sridevi Lomeli ANP BP cuff rx 08/16/2025 Travel from Last 3 Months Family History Medical [...] Sign Reading Time Taken Comments Blood Pressure 124/86 09/23/2025 9:48 AM EDT Pulse 88 09/23/2025 9:48 AM EDT Temperature 36.2 C (97.1 F) 09/23/2025 9:48 AM EDT Respiratory Rate 17 09/23/2025 9:48 AM EDT Oxygen Saturation 96% 09/23/2025 9:48 AM EDT Inhaled Oxygen Concentration - - Weight 102 kg (224 lb) 09/23/2025 9:48 AM EDT Height 167.6 cm (5' 6 ) 09/23/2025 9:48 AM EDT Body Mass Index 36.15 09/23/2025 9:48 AM EDT Plan of Treatment Health Maintenance Due Date Last Done Comments Depression Screening 1994 SDOH Screening 1994 Disability Screening 1994 Diabetes: Foot Exam 2004 Eye Exam 2004 Alcohol/Substance Use Screening 2006 Family Planning (PISQ) 2009 HPV Vaccines (1 - Male 3-dos e series) 2009 Diabetes: Urine Protein Screening 2013 Hepatitis A Vaccines (1 of 2 - Risk 2-dose series) 2013 Hepatitis B Vaccines (1 of 3 - 19+ 3-dose series) 2013 Pneumococcal Vaccine: Pediatrics (0 to 5 Years) and At-Risk Patients (6 to 49) Years (1 of 2 - PCV) 2013 COVID-19 Vaccine (1 - 2023-2 5 season) 2025 Diabetes: Hemoglobin A1C 11/16/2025 08/17/2025 Lipid Panel 08/17/2026 08/17/2025 Tobacco Screening 09/23/2026 09/23/2025 DTaP/Tdap/Td Vaccines (2 - T d or Tdap) 08/24/2035 08/24/2025 Zoster Vaccines (1 of 2) 2044 RSV Patients and Patients Aged 60 years or older (1 - 1-dose 75+ series) 2069 HIV Screening Completed 08/17/2025 Hepatitis C Screening Completed 08/17/2025 Influenza Vaccine Completed 08/24/2025, 10/22/2014 HIB Vaccines Aged Out No longer eligi [...] Procedure Name Priority Date/Time Associated Diagnosis Comments POCT GLUCOSE Routine 09/23/2025 9:49 AM EDT Type 2 diabetes mellitus with hyperglycemia, without long-term current use of insulin (HCC) CBC WITH AUTO DIFFERENTIAL Routine 08/17/2025 1:18 PM EDT Prediabetes BASIC METABOLIC PANEL Routine 08/17/2025 1:18 PM EDT Prediabetes SYPHILIS SCREEN Routine 08/17/2025 1:18 PM EDT Screening examination for STI HIV 1/2 ANTIGEN/ANTIBODY, FOURTH GENERATION W/RFL Routine 08/17/2025 1:18 PM EDT Screening examination for STI HEPATITIS C AB W/REFL TO HCV RNA, QN, PCR Routine 08/17/2025 1:18 PM EDT Screening examination for STI HEPATITIS B SURFACE ANTIGEN, EIA Routine 08/17/2025 1:18 PM EDT Need for hepatitis B screening test HEPATITIS B SURFACE ANTIBODY, QUALITATIVE Routine 08/17/2025 1:18 PM EDT Need for hepatitis B screening test HEPATITIS B CORE AB TOTAL Routine 08/17/2025 1:18 PM EDT Need for hepatitis B screening test HEPATIC FUNCTION PANEL Routine 08/17/2025 1:18 PM [...] throat from Last 3 Months Results * POCT Glucose (09/23/2025 9:49 AM EDT) Glucose Blood, POC 128 60 - 200 mg/dL QC Media Lot # [id number] Lot# Expiration Date Blood Capillary blood specimen / Unknown 09/23/2025 9:49 AM EDT Enriqueta Yi MD POINT OF CARE TEST EN TER/EDIT ORDERABLES Final Result * Syphilis Screen (08/17/2025 1:18 PM EDT) Syphilis Screen Nonreactive Nonreactive [facility] Blood Venous blood specimen / Unknown 08/17/2025 1:18 PM EDT 08/17/2025 4:04 PM EDT Sridevi Lomeli [facility] BLOOD ORDERABLES Final Resul t [facility] [address] [place] [phone] * (ABNORMAL) CBC auto differential (08/17/2025 1:18 PM EDT) White Blood Count 6.0 4.8 - 10.8 X10*3/uL [facility] Red Blood Count 6.07(H) 4.60 - 5.80 X10*6/uL [facility] Hemoglobin 17.7 14.0 - 18.0 g/dl [facility] Hematocrit 51.5 42.0 - 52.0 % [facility] Mean Corpuscular Volume 84.8 80.0 - 98.0 fL [facility] Mean Corpuscular Hemoglobin 29.2 27.0 - 33.0 pg [facility] Mean Corpuscular HGB Conc 34.4 31.0 - 36.0 g/dl [facility] Red Cell Distribution Width 11.9 11.0 - 16.0 % [facility] Platelet Count 220 160 - 400 X10*3/uL [facility] Mean Platelet Volume 12.3 9.4 - 12.4 fL [facility] Neutrophils Percent Auto 47.9 45 - 73 % [facility] Imm Gran Pct Auto 0.2 0.0 - 0.4 % [facility] Lymphocytes Percent Auto 36.3 20 - 40 % [facility] Monocytes Percent Auto 11.4(H) 2 - 11 % [facility] Eosinophils Percent Auto 3.4 0 - 4 % [facility] Basophils Percent Auto 0.8 0 - 2 % [facility] NRBC Pct Auto 0.0 0.0 - 0.2 /100WBC [facility] Neutrophils Absolute Auto 2.9 2.0 - 8.3 x10*3/uL [facility] Imm Gran Abs Auto 0.01 0.00 - 0.03 X10*3/uL [facility] Lymphocytes Absolute Auto 2.2 1.2 - 4.9 X10*3/uL [facility] Monocytes Absolute Auto 0.7 0.1 - 1.2 X10*3/uL [facility] Eosinophils Absolute Auto 0.2 0.0 - 0.4 X10*3/uL [facility] Basophils Absolute Auto 0.1 0.0 - 0.2 X10*3/uL [facility] NRBC Abs Auto 0.000 0.0 - 0.012 X10*3/uL [facility] Blood Venous blood specimen / Unknown 08/17/2025 1:18 PM EDT 08/17/2025 4:04 PM EDT Sridevi Lomeli [facility] BLOOD ORDERABLES Final Resul t Performing Organization Address [facility] Co de Phone Number [facility] [address] [place] [phone] * Hepatitis C Antibody with Reflex to HCV, RNA, Quantitative, Real-Time PCR (08/17/2025 1:18 PM EDT) Pathologist [facility] Hepatitis C Antibody Nonreactive Nonreactive [facility] Comment:Antibodies to HCV no t detected; does not exclude early acuteHCV infection. Blood Venous blood specimen / Unknown 08/17/2025 1:18 PM EDT 08/17/2025 4:04 PM EDT Sridevi Lomeli [facility] LAB BLOOD ORDERABLES Final Resul t Performing Organization Address [facility] Co de Phone Number [facility] [address] [place] [phone] * Hepatitis B surface antigen, EIA (08/17/2025 1:18 PM EDT) Pathologist [facility] Hepatitis B Surface Ag Negative Negative [facility] Blood Venous blood specimen / Unknown 08/17/2025 1:18 PM EDT 08/17/2025 4:04 PM EDT us Sridevi Lomeli [facility] BLOOD ORDERABLES Final Resul t Performing Organization Address City/[facility]/ZIP Co de Phone Number [facility] [address] [place] [phone] * Hepatitis B Core Antibody, Total (08/17/2025 1:18 PM EDT) Hepatitis B Core Antibody Nonreactive Nonreactive [facility] Blood Venous blood specimen / Unknown 08/17/2025 1:18 PM EDT 08/17/2025 4:04 PM EDT us Sridevi Lomeli [facility] BLOOD ORDERABLES Final Resul t Performing Organization Address [facility] Co de Phone Number [facility] [address] [place] [phone] * HIV-1/2 Antigen and Antibodies, Fourth Generation, with Reflexes (08/17/2025 1:18 PM EDT) HIV AB/AG Nonreactive Nonreactive [facility] Comment:HIV-1 p24 Ag and/or HIV-1/HIV-2 Ab not detected.A test result that is nonreactive does not exclude thepossibility of exposure to or infection with HIV-1 and/orHIV-2. Nonreactive results in this assay for individualswith prior exposure to HIV-1 and/or HIV-2 may be due toantigen and antibody levels that are below the limit ofdetection of this assay.[employer] HIV Ag/Ab Combo assay result andsupplemental assay results should be interpreted inconjunction with the patient's clinical presentation,history and other laboratory results. If the results areinconsistent with clinical evidence, additional testing issuggested to confirm the result. Blood Venous blood specimen / Unknown 08/17/2025 1:18 PM EDT 08/17/2025 4:04 PM EDT us Sridevi Lomeli ANP LAB BLOOD ORDERABLES Final Resul t Performing Organization Address [facility] Co de Phone Number [facility] [address] [place] [phone] * Hepatitis B Surface Antibody, Qualitative (08/17/2025 1:18 PM EDT) ~Hepatitis B Surface Antibody NONREACTIVE Nonreactive [facility] Comment:Nonreactive: < 8.00 mIU/mL Blood Venous blood specimen / Unknown 08/17/2025 1:18 PM EDT 08/17/2025 4:04 PM EDT Sridevi Lomeli ANP LAB BLOOD ORDERABLES Final Resul t Performing Organization Address [facility] de Phone Number [facility] [address] [place] [phone] * (ABNORMAL) Hemoglobin A1c (08/17/2025 1:18 PM EDT) Hemoglobin A1c 9.8(H) <6.0 % [facility] Comment:Hemoglobin A1C Refer ence Range Adults: 4.8 - 6.0 % Non diabetic: < 6.0 % Goal: < 7.0 %Additional Action Suggested: > 8.0 %Note: Hemoglobin A1c results are invalid for patients with abnormal amounts of HbF. Blood transfusions may impact the HbA1c concentration in the patient sample. Estimated Average Glucose 235 mg/dL [facility] Comment:eAG = Estimated ave rage glucose which is %A1C expressed asaverage glucose, using the formula of the [id number] Glucose study (ADAG), Diabetes Care, Vol.31,#8,2007 Blood Venous blood specimen / Unknown 08/17/2025 1:18 PM EDT 08/17/2025 4:04 PM EDT Sridevi Lomeli ANP LAB BLOOD ORDERABLES Final Resul t Performing Organization Address [facility] Co de Phone Number [facility] [address] [place] [phone] * (ABNORMAL) Hepatic Function Panel (08/17/2025 1:18 PM EDT) Bilirubin, Total 0.6 0.0 - 1.0 mg/dL [facility] Bilirubin, Direct 0.2 0.0 - 0.5 mg/dL [facility] Aspartate Amino Transferase 67(H) 5 - 37 U/L [facility] Alanine Aminotransferase 199(H) 0 - 40 U/L [facility] Total Protein 7.8 6.5 - 8.0 g/dL [facility] Albumin Level 4.9 3.5 - 5.0 g/dL [facility] Alkaline Phosphatase 82 39 - 117 U/L [facility] Blood Venous blood specimen / Unknown 08/17/2025 1:18 PM EDT 08/17/2025 4:04 PM EDT [facility] LAB BLOOD ORDERABLES Final Resul t [facility] [address] [place] [phone] * (ABNORMAL) Lipid Panel, Standard (08/17/2025 1:18 PM EDT) Triglycerides 315(H) <150 mg/dL [facility] Comment:Desirable Triglyceri de: less than 150 mg/dLBorderline High Triglyceride 150-199 mg/dLHigh Triglyceride: 200-499 mg/dLVery High Triglyceride: greater than or equal to 5OO mg/dL Cholesterol 174 <200 mg/dL [facility] Comment:Desirable Cholestero l: less than 200 mg/dLBorderline High Cholesterol: 200-239 mg/dLHigh Cholesterol: greater than 239 mg/dL LDL Cholesterol Calculated 82 <100 mg/dL [facility] Comment:Desirable LDL: less than 100 mg/dLNear Optimal/Above Optimal LDL: 110- 129 mg/dLBorderline High LDL: 130-159 mg/dLHigh LDL: 160-189 mg/dLVery High LDL: greater than or equal to 190 mg/dL HDL Cholesterol 29(L) >40 mg/dL [facility] Comment:Desirable HDL: great er than 40 mg/dL Note: This HDL assay may give artificially low results in patients with liver disease. Blood Venous blood specimen / Unknown 08/17/2025 1:18 PM EDT 08/17/2025 4:04 PM EDT Sridevi Lomeli ANP LAB BLOOD ORDERABLES Final Resul t Performing Organization Address [facility] Co de Phone Number [facility] [address] [place] [phone] * (ABNORMAL) Basic Metabolic Panel (08/17/2025 1:18 PM EDT) Sodium 139 135 - 145 mmol/L [facility] Potassium 4.9 3.3 - 5.1 mmol/L [facility] Chloride 101 96 - 108 mmol/L [facility] Carbon Dioxide 31(H) 22 - 29 mmol/L [facility] Anion Gap 12 12 - 20 [facility] Urea Nitrogen (BUN) 12 9 - 16 mg/dL [facility] Creatinine, Serum 1.28 0.5 - 1.4 mg/dL [facility] Estimated Glomerular Filt Rate >60 [facility] Comment:Chronic Kidney Disea se: Estimated GFR < 60 mL/min/[id number] Kidney Disease: Estimated GFR < 15 mL/min/1.73m2 Glucose 298(H) 60 - 115 mg/dL [facility] Calcium 9.6 8.4 - 10.2 mg/dL [facility] Blood Venous blood specimen / Unknown 08/17/2025 1:18 PM EDT 08/17/2025 4:04 PM EDT Sridevi Lomeli ANP LAB BLOOD ORDERABLES Final Resul t Performing Organization Address [facility] Co de Phone Number [facility] [address] [place] [phone] * Influenza B (ID NOW Rapid Molecular) (08/16/2025 1:51 PM EDT) [facility] Influenza B Negative Negative, Indeterminate [facility] Swab 08/16/2025 1:51 PM EDT us Sridevi Lomeli ANP POINT OF CARE TEST ENTER/EDIT OR DERABLES Final Result Performing Organization Address [facility] de Phone Number [facility] [address] [place] [phone] * Influenza A (ID NOW Rapid Molecular) (08/16/2025 1:51 PM EDT) [facility] Influenza A Negative Negative, Indeterminate [facility] Swab 08/16/2025 1:51 PM EDT Sridevi Lomeli ANP POINT OF CARE TEST ENTER/EDIT OR DERABLES Final Result Performing Organization Address [facility] de Phone Number [facility] [address] [place] [phone] * POCT Rapid COVID Ag (08/16/2025 1:51 PM EDT) [facility] Rapid COVID Ag Negative [facility] Swab 08/16/2025 1:51 PM EDT us Sridevi Lomeli ANP POINT OF CARE TEST ENTER/EDIT OR DERABLES Final Result Performing Organization Address [facility] de Phone Number [facility] [address] [place] [phone] * POCT rapid strep A manually resulted (08/16/2025 1:51 PM EDT) [facility] Rapid Strep A Screen Negative Negative, None Detected [facility] Swab 08/16/2025 1:51 PM EDT us Sridevi Lomeli ANP POINT OF CARE TEST ENTER/EDIT OR DERABLES Final Result [facility] [address] [place] [phone] from Last 3 Months Insurance [facility] C3 Care Teams Implementation Specialist Payroll Relationship Specialty Start Date End Date Enriqueta Rice MD [address] [place] [phone] PCP - General Internal Medicine 09/23/25
--- OUTSIDE RECORDS SUMMARY | 2025-10-06 17:09 | XMS_ITS | Encounter Summary ---
Author Organization [employer] Address [address] [facility] [address] [place] [address] Care Team Providers Care Design/Animation Instructor Name Role Phone Enriqueta Rice MD Primary Care Provide r Reason for Visit * Reason Comments Med Refill Encounter Details Date Type Department Care Team ([facility] st Contact Info) Description 09/21/2025 Refill [facility] [address] [place], [place] [phone] Sridevi Lomeli, ANP [address] [place] [address] Nasal congestion Social History Tobacco Use Types Packs/Day Years Used Date Smoking Tobacco: Never Smokeless Tobacco: Never Sex and Gender Information Value Date Recorded Sex Assigned at Male 08/16/2025 9:46 AM EDT Legal Sex Male 2:04 AM EDT Gender Identity Male 08/16/2025 9:46 AM EDT Sexual Orientation Straight 08/16/2025 9: 46 AM EDT documented as of this encounter Plan of Treatment Not on file documented as of this encounter Visit Diagnoses Diagnosis Nasal congestion Other diseases of nasal cavity and sinuses documented in this encounter Care Teams Design/Animation Instructor Relationship Specialty Start Date End Date Enriqueta Rice MD [address] [place] [address] [phone] PCP - General Internal Medicine 09/23/25 documented as of this encounter
== END 2025-10-06 14:45 | disposition home or self-care (01) ==
LOC: HO.HPODS 13:57
PROVIDERS: PCP Nurse Practitioner Primary Care; Visit Provider Student in an Organized Health Care Education/Training Program
DX: M72.2 Plantar fascial fibromatosis (principal); Q66.71 Congenital pes cavus, right foot; Q66.72 Congenital pes cavus, left foot; L03.032 Cellulitis of left toe
CPT/HCPCS: 99204

== ENCOUNTER → 2025-10-06 13:57 | Outpatient (BNVA) | payer MEDICAID, SELFPAY | PROVIDERS: PCP Nurse Practitioner Primary Care; Visit Provider Student in an Organized Health Care Education/Training Program | DX: Q66.71 Congenital pes cavus, right foot (principal); M72.2 Plantar fascial fibromatosis; L03.032 Cellulitis of left toe; E11.9 Type 2 diabetes mellitus without complications | CPT/HCPCS: 99202 ==

== ENCOUNTER 2025-10-22 11:09 | Outpatient (REF) | payer MEDICAID, SELFPAY ==
--- NOTE | ~2025-10-22 | XR_ITS ---
EXAMINATION: X-ray bilateral feet CLINICAL INFORMATION: Plantar fascial fibromatosis. COMPARISON: None TECHNIQUE: Right foot 3 views. Left foot 3 views. FINDINGS: Right foot: No evidence of acute fracture. Corticated ossification along the proximal base of the fifth metatarsal, has a chronic appearance, could reflect sequela of remote fracture or ossicle. No significant joint space narrowing. No marginal osteophytes. No osseous erosion. No abnormal soft tissue calcification. Small posterior calcaneal enthesopathy. Left foot: No fracture. No significant joint space narrowing. No marginal osteophytes. No osseous erosion. No joint effusion. No abnormal soft tissue calcification. Small posterior calcaneal insertional enthesopathy. XR/XR Foot Yovani 3V IMPRESSION: Right foot: No acute findings Left foot: No acute findings Electronically signed by: Mars Burnham MD 10/22/2025 04:47 PM EST
--- OUTSIDE RECORDS SUMMARY | 2025-10-22 12:01 | XMS_ITS | Encounter Summary ---
Author Organization [employer] Address [address] [facility] 7t [place] [address] Care Team Providers Care Surgical Device Sales Representative Name Role Phone Enriqueta Rice MD Primary Care Provide r Reason for Visit * Reason Comments Med Refill Encounter Details Date Type Department Care Team ([facility] st Contact Info) Description 09/21/2025 Refill [facility] [address] [place], [place] [phone] Sridevi Lomeli, ANP [address] [place] [address] Nasal congestion Social History Tobacco Use Types [...] sinuses documented in this encounter Care Teams Surgical Device Sales Representative Relationship Specialty Start Date End Date Enriqueta Rice MD [address] [place] [address] [phone] PCP - General Internal Medicine 09/23/25 documented as of this encounter
--- OUTSIDE RECORDS SUMMARY | 2025-10-22 12:01 | XMS_ITS | Clinical Summary ---
Author Organization [employer] Address [address] [place] [address] Care Team Providers Care Medical Lab Director Name Role Phone Enriqueta Rice MD Primary [...] 5 Active Blood Glucose Monitoring Suppl (FreeStyle Springer Lite) w/Device kitIndications:Pr ediabetes Use to test blood sugar 2 times daily 1 kit 5 Active metFORMIN XR (Glucophage-XR) 500 MG 24 hr tabletIndications :Hypertension associated with diabetes (HCC) Take 1 tab once daily with food for 1 week, then increase to 1 tab twice daily with meals. Do not crush, chew, or split. 180 tablet 1 5 Active Tirzepatide (Mounjaro) 2.5 MG/0.5ML solution auto-injectorIndi cations:New onset type 2 diabetes mellitus (HCC),Hypertensio n associated with diabetes ([facility]) Inject 2.5 mg under the skin 1 (one) time per week. 2 mL 5 Active losartan (Cozaar) 50 MG tabletIndications :Hypertension associated with diabetes ([facility]) TOME 1 TABLETA POR VIA ORAL TODOS [place] ALLEN 90 tablet 5 Active FREESTYLE LITE test stripIndications: Type 2 diabetes mellitus with hyperglycemia, without long-term current use of insulin ([facility]) Use to test blood sugar 3 times daily 100 each 12 5 09/23/20 26 Active Tirzepatide (Mounjaro) 5 MG/0.5ML solution auto-injectorIndi cations:Type 2 diabetes mellitus with hyperglycemia, without long-term current use of insulin ([facility]) Inject 5 mg under the skin 1 (one) time per week. 2 mL 2 5 Active Active Problems Problem Noted Date Diagnosed Date Type 2 diabetes mellitus wit h hyperglycemia, without long-term current use of insulin 09/23/2025 Chronic pain of both feet 09/23/2025 Bilateral carpal tunnel syndrome 09/23/2025 Hypertension associated with diabetes 08/19/2025 Elevated blood pressure read ing without diagnosis of hypertension 08/16/2025 Encounters Date Type Department Care Team Description 09/23/2025 9:30 AM EDT Office Visit [facility] [address] [place] [phone] Enriqueta Rice MD Bilateral carpal tunnel syndrome (Primary Dx); Type 2 diabetes mellitus with hyperglycemia, without long-term current use of insulin ([facility]); Chronic pain of both feet 09/23/2025 Travel 09/22/2025 Telephone [facility] [address] [place] [address] Enriqueta Rice MD Chart Prep 09/21/2025 Refill [facility] [address] [place] [phone] Sridevi Lomeli ANP Nasal congestion 09/16/2025 Patient Outreach [facility] [address] [place] [address] Enriqueta Rice MD Pre-visit Planning (SDOH unable to reach [facility] ) 08/19/2025 Refill [facility] [address] [place] [phone] Sridevi Lomeli ANP Hypertension associated with diabetes (CMS/HCC) 08/19/2025 Results Follow-Up [address] [address] Sridevi Lomeli ANP Hemoglobin A1c, Lipid Panel, Standard, Hepatic Function Panel, Additional followed-up results: 12 08/17/2025 11:20 AM EDT Clinical Support [facility] [address] [place] [phone] Fernanda Martell RN Elevated blood pressure reading without diagnosis of hypertension [R03.0] 08/17/2025 Travel 08/17/2025 Orders Only [facility] [address] [place] [phone] Sridevi Lomeli ANP Hypertension associated with diabetes (CMS/HCC) (Primary Dx) 08/16/2025 1:00 PM EDT Office Visit [facility] [address] [address] Sridevi Lomeli ANP Sore throat (Primary Dx); Elevated blood pressure reading without diagnosis of hypertension; Dietary counseling; Exercise counseling; Nasal congestion; Prediabetes; Hepatic steatosis; Need for hepatitis B screening test; Screening examination for STI; Balanitis; Hypertension associated with diabetes (CMS/HCC); Need for hepatitis B vaccination 08/16/2025 Telephone [facility] [address] [place] [phone] Sridevi Lomeli ANP BP cuff rx 08/16/2025 [...] of 2 - PCV) 2013 COVID-19 Vaccine ( - 2024-2 6 season) 2025 Diabetes: Hemoglobin A1C 11/16/2025 08/17/2025 [...] * POCT Glucose (09/23/2025 9:49 AM EDT) Pathologist [facility] Glucose Blood, POC 128 60 - 200 mg/dL QC Media Lot # [id number] Lot# Expiration Date Blood Capillary blood specimen / Unknown 09/23/2025 9:49 AM EDT us Enriqueta Yi MD POINT OF CARE TEST EN TER/EDIT ORDERABLES Final Result * Syphilis Screen (08/17/2025 1:18 PM EDT) [facility] Syphilis Screen Nonreactive Nonreactive [facility] Blood Venous blood specimen / Unknown 08/17/2025 1:18 PM EDT 08/17/2025 4:04 PM EDT us Sridevi SANTIAGO LAB BLOOD ORDERABLES Final Resul t [facility] [address], [place] [phone] * (ABNORMAL) CBC auto differential (08/17/2025 1:18 PM EDT) White Blood Count 6.0 4.8 - 10.8 X10*3/uL [facility] Red Blood Count 6.07(H) 4.60 - 5.80 X10*6/uL [facility] Hemoglobin 17.7 14.0 - 18.0 g/dl [facility] Hematocrit 51.5 42.0 - 52.0 % [facility] Mean Corpuscular Volume 84.8 80.0 - 98.0 fL [facility] Mean Corpuscular Hemoglobin 29.2 27.0 - 33.0 pg [facility] Mean Corpuscular HGB Conc 34.4 31.0 - 36.0 g/dl [facility] Red Cell Distribution Width 11.9 11.0 - 16.0 % [facility] Platelet Count 220 160 - 400 X10*3/uL [facility] Mean Platelet Volume 12.3 9.4 - 12.4 fL [facility] Neutrophils Percent Auto 47.9 45 - 73 % [facility] Imm Gran Pct Auto 0.2 0.0 - 0.4 % [facility] Lymphocytes Percent Auto 36.3 20 - 40 % [facility] Monocytes Percent Auto 11.4(H) 2 - 11 % [facility] Eosinophils Percent Auto 3.4 0 - 4 % [facility] Basophils Percent Auto 0.8 0 - 2 % [facility] NRBC Pct Auto 0.0 0.0 - 0.2 /100WBC [facility] Neutrophils Absolute Auto 2.9 2.0 - 8.3 x10*3/uL [facility] Imm Gran Abs Auto 0.01 0.00 - 0.03 X10*3/uL [facility] Lymphocytes Absolute Auto 2.2 1.2 - 4.9 X10*3/uL [facility] Monocytes Absolute Auto 0.7 0.1 - 1.2 X10*3/uL [facility] Eosinophils Absolute Auto 0.2 0.0 - 0.4 X10*3/uL [facility] Basophils Absolute Auto 0.1 0.0 - 0.2 X10*3/uL [facility] NRBC Abs Auto 0.000 0.0 - 0.012 X10*3/uL [facility] Blood Venous blood specimen / Unknown 08/17/2025 1:18 PM EDT 08/17/2025 4:04 PM EDT us Sridevi Lomeli ANP LAB BLOOD ORDERABLES Final Resul t Performing Organization Address [facility] de Phone Number [facility] [address] [place] [phone] * Hepatitis C Antibody with Reflex to HCV, RNA, Quantitative, Real-Time PCR (08/17/2025 1:18 PM EDT) Hepatitis C Antibody Nonreactive Nonreactive [facility] Comment:Antibodies to HCV no t detected; does not exclude early acuteHCV infection. Blood Venous blood specimen / Unknown 08/17/2025 1:18 PM EDT 08/17/2025 4:04 PM EDT us Sridevi Lomeli [facility] LAB BLOOD ORDERABLES Final Resul t Performing Organization Address [facility] Co de Phone Number [facility] [address] [place] [phone] * Hepatitis B surface antigen, EIA (08/17/2025 1:18 PM EDT) Hepatitis B Surface Ag Negative Negative [facility] Blood Venous blood specimen / Unknown 08/17/2025 1:18 PM EDT 08/17/2025 4:04 PM EDT us Sridevi Lomeli ANP LAB BLOOD ORDERABLES Final Resul t Performing Organization Address [facility]/State/ZIP Co de Phone Number [facility] [address] [place] [phone] * Hepatitis B Core Antibody, Total (08/17/2025 1:18 PM EDT) Hepatitis B Core Antibody Nonreactive Nonreactive [facility] Blood Venous blood specimen / Unknown 08/17/2025 1:18 PM EDT 08/17/2025 4:04 PM EDT Sridevi Lomeli [facility] LAB BLOOD ORDERABLES Final Resul t Performing Organization Address [facility] Co de Phone Number [facility] [address] [place] [phone] * HIV-1/2 Antigen and Antibodies, Fourth Generation, with Reflexes (08/17/2025 1:18 PM EDT) HIV AB/AG Nonreactive Nonreactive [facility] Comment:HIV-1 p24 Ag and/or HIV-1/HIV-2 Ab not detected.A test result that is nonreactive does not exclude thepossibility of exposure to or infection with HIV-1 and/orHIV-2. Nonreactive results in this assay for individualswith prior exposure to HIV-1 and/or HIV-2 may be due toantigen and antibody levels that are below the limit ofdetection of this assay.The [employer] HIV Ag/Ab Combo assay result andsupplemental assay results should be interpreted inconjunction with the patient's clinical presentation,history and other laboratory results. If the results areinconsistent with clinical evidence, additional testing issuggested to confirm the result. Blood Venous blood specimen / Unknown 08/17/2025 1:18 PM EDT 08/17/2025 4:04 PM EDT us Sridevi SANTIAGO LAB BLOOD ORDERABLES Final Resul t Performing Organization Address [facility] Co de Phone Number [facility] [address] [place] [phone] * Hepatitis B Surface Antibody, Qualitative (08/17/2025 1:18 PM EDT) ~Hepatitis B Surface Antibody NONREACTIVE Nonreactive [facility] Comment:Nonreactive: < 8.00 mIU/mL Blood Venous blood specimen / Unknown 08/17/2025 1:18 PM EDT 08/17/2025 4:04 PM EDT Sridevi Lomeli [facility] LAB BLOOD ORDERABLES Final Resul t Performing Organization Address [facility] Co de Phone Number [facility] [address] [place] [phone] * (ABNORMAL) Hemoglobin A1c (08/17/2025 1:18 PM EDT) Hemoglobin A1c 9.8(H) <6.0 % [facility] Comment:Hemoglobin A1C Refer ence Range Adults: 4.8 - 6.0 % Non diabetic: < 6.0 % Goal: < 7.0 %Additional Action Suggested: > 8.0 %Note: Hemoglobin A1c results are invalid for patients with abnormal amounts of HbF. Blood transfusions may impact the HbA1c concentration in the patient sample. Estimated Average Glucose 235 mg/dL [facility] Comment:eAG = Estimated ave rage glucose which is %A1C expressed asaverage glucose, using the formula of the W2H-BvahmqjNhrctxi Glucose study (ADAG), Diabetes Care, Vol.31,#8,Jul. 2007 Blood Venous blood specimen / Unknown 08/17/2025 1:18 PM EDT 08/17/2025 4:04 PM EDT Sridevi Lomeli ANP LAB BLOOD ORDERABLES Final Resul t Performing Organization Address [facility] Co de Phone Number [facility] [address] [place] [phone] [phone] * (ABNORMAL) Hepatic Function Panel (08/17/2025 1:18 PM EDT) Bilirubin, Total 0.6 0.0 - 1.0 mg/dL [facility] Bilirubin, Direct 0.2 0.0 - 0.5 mg/dL [facility] Aspartate Amino Transferase 67(H) 5 - 37 U/L [facility] Alanine Aminotransferase 199(H) 0 - 40 U/L [facility] Total Protein 7.8 6.5 - 8.0 g/dL [facility] Albumin Level 4.9 3.5 - 5.0 g/dL [facility] Alkaline Phosphatase 82 39 - 117 U/L [facility] Blood Venous blood specimen / Unknown 08/17/2025 1:18 PM EDT 08/17/2025 4:04 PM EDT Sridevi Lomeli [facility] BLOOD ORDERABLES Final Resul t [facility] [address] [place] [phone] * (ABNORMAL) Lipid Panel, Standard (08/17/2025 1:18 PM EDT) Triglycerides 315(H) <150 mg/dL [facility] Comment:Desirable Triglyceri de: less than 150 mg/dLBorderline High Triglyceride 150-199 mg/dLHigh Triglyceride: 200-499 mg/dLVery High Triglyceride: greater than or equal to 5OO mg/dL Cholesterol 174 <200 mg/dL [facility] Comment:Desirable Cholestero l: less than 200 mg/dLBorderline High Cholesterol: 200-239 mg/dLHigh Cholesterol: greater than 239 mg/dL LDL Cholesterol Calculated 82 <100 mg/dL [facility] Comment:Desirable LDL: less than 100 mg/dLNear Optimal/Above Optimal LDL: 110- 129 mg/dLBorderline High LDL: 130-159 mg/dLHigh LDL: 160-189 mg/dLVery High LDL: greater than or equal to 190 mg/dL HDL Cholesterol 29(L) >40 mg/dL [facility] Comment:Desirable HDL: great er than 40 mg/dL Note: This HDL assay may give artificially low results in patients with liver disease. Blood Venous blood specimen / Unknown 08/17/2025 1:18 PM EDT 08/17/2025 4:04 PM EDT Sridevi Lomeli ANP LAB BLOOD ORDERABLES Final Resul t Performing Organization Address [facility] Co de Phone Number [facility] [address] [place] [phone] * (ABNORMAL) Basic Metabolic Panel (08/17/2025 1:18 PM EDT) Pathologist [facility] Sodium 139 135 - 145 mmol/L [facility] Potassium 4.9 3.3 - 5.1 mmol/L [facility] Chloride 101 96 - 108 mmol/L [facility] Carbon Dioxide 31(H) 22 - 29 mmol/L [facility] Anion Gap 12 12 - 20 [facility] Urea Nitrogen (BUN) 12 9 - 16 mg/dL [facility] Creatinine, Serum 1.28 0.5 - 1.4 mg/dL [facility] Estimated Glomerular Filt Rate >60 [facility] Comment:Chronic Kidney Disea se: Estimated GFR < 60 mL/min/[id number] Kidney Disease: Estimated GFR < 15 mL/min/1.73m2 Glucose 298(H) 60 - 115 mg/dL [facility] Calcium 9.6 8.4 - 10.2 mg/dL [facility] Blood Venous blood specimen / Unknown 08/17/2025 1:18 PM EDT 08/17/2025 4:04 PM EDT Sridevi Lomeli ANP LAB BLOOD ORDERABLES Final Resul t Performing Organization Address [facility]/ZIP Co de Phone Number [facility] [address] [place] [address] [phone] * Influenza B (ID NOW Rapid Molecular) (08/16/2025 1:51 PM EDT) Influenza B Negative Negative, Indeterminate [facility] Swab 08/16/2025 1:51 PM EDT Sridevi Lomeli ANP POINT OF CARE TEST ENTER/EDIT OR DERABLES Final Result Performing Organization Address [facility] Co de Phone Number [facility] [address] [place] [phone] * Influenza A (ID NOW Rapid Molecular) (08/16/2025 1:51 PM EDT) Pathologist [facility] Influenza A Negative Negative, Indeterminate [facility] Swab 08/16/2025 1:51 PM EDT Sridevi Lomeli ANP POINT OF CARE TEST ENTER/EDIT OR DERABLES Final Result Performing Organization Address [facility] Co de Phone Number [facility] [address] [place] [phone] * POCT Rapid COVID Ag (08/16/2025 1:51 PM EDT) [facility] Rapid COVID Ag Negative [facility] Swab 08/16/2025 1:51 PM EDT Sridevi Lomeli ANP POINT OF CARE TEST ENTER/EDIT OR DERABLES Final Result Performing Organization Address [facility] Co de Phone Number [facility] [address] [place] [phone] * POCT rapid strep A manually resulted (08/16/2025 1:51 PM EDT) [facility] Rapid Strep A Screen Negative Negative, None Detected [facility] Swab 08/16/2025 1:51 PM EDT Sridevi Lomeli ANP POINT OF CARE TEST ENTER/EDIT OR DERABLES Final Result Performing Organization Address [facility] Co de Phone Number [facility] [address] [place] [phone] from Last 3 Months Insurance [facility] [employer] Care Teams Medical Lab Director Relationship Specialty Start Date End Date Enriqueta Rice MD [address] [place] [phone] PCP - General Internal Medicine 09/23/25
== END 2025-10-22 11:10 | disposition home or self-care (01) ==
LOC: HO.XRAY 11:09
PROVIDERS: PCP Internal Medicine; Visit Provider Student in an Organized Health Care Education/Training Program
DX: M72.2 Plantar fascial fibromatosis (principal)
CPT/HCPCS: 73630

== ENCOUNTER → 2025-10-22 11:20 | Outpatient (BNV) | payer MEDICAID, SELFPAY | PROVIDERS: PCP Internal Medicine; Visit Provider Radiology Diagnostic Ultrasound | DX: M72.2 Plantar fascial fibromatosis (principal) | CPT/HCPCS: 73630 ==

== ENCOUNTER 2025-11-03 14:27 | Outpatient (AMB) | payer MEDICAID, SELFPAY ==
--- NOTE | 2025-11-03 14:33 | A.OFFVIS_ITS ---
Intake Visit Reasons: Diabetes Mellitu Intake Note: Flo is a 30 year old male who presents today for a follow up for both of his feet. Patient reports he is doing well but he is still having discomfort. 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 Diabetes Mellitu: Details: 30-year-old male with past medical history of diabetes mellitus type 2 and hypertension who returns for bilateral heel pain. He has been performing range of motion and stretching exercises, and he also has been using the recommended inserts. His pain has decreased to about 5 or 6/10. He is taking meloxicam as needed. The patient states that he has had chronic heel pain and arch pain for several years. He describes the pain worse to the middle of his arch and radiates back towards his heel. Pain is worse after standing for prolonged periods of time. Patient denies complaints of burning numbness or tingling to his feet. He notes a history of left big toe nail infection which required him to go to the emergency room and removed the nail in its entirety. Social: The patient states he works standing most of the day Review of Systems Const All systems reviewed & are unremarkable except as noted in HPI and below Physical Exam Extrem Other: *Bilateral Lower Extremity Focused Diabetic Foot Exam Vascular: DP/PT 2/4, CFT<3s to digits, TG warm to cool, no pedal edema, pedal hair present Derm: Skin: No open lesions, ulcerations, or calluses. Interdigital spaces: Clear, no maceration or fungal infection. Nails: Left hallux medial and lateral nail borders are mildly ingrown. There are no signs of edema erythema drainage or clinical signs of infection. Neuro: [place]-gareth monofilament (10g) test 10/10 intact to right foot, 10/10 intact to left foot. Msk: Mild tenderness on palpation of the plantar medial calcaneal tubercle bilaterally, right worse than left Moderate-high arch foot type. Neutral calcaneus on weight-bearing. Bilateral Ankle 5 degrees of dorsiflexion. Footwear Assessment: Shoes inspected; appropriate fit, no excessive wear, or foreign objects noted. Results Reviewed Results Reviewed: Laboratory Tests 08/17/25 13:18 Hemoglobin A1c % 9.8 H Assessment & Plan Assessment & Plan (1) Plantar fasciitis, bilateral: Code(s): M72.2 - Plantar fascial fibromatosis Category: Medical Plan: * Discussed etiology of the patient's foot pain. Differential diagnosis includes plantar fasciitis, neuritis, tendinitis. * Patient educated on the nature and etiology of plantar fasciitis, which involves inflammation and microtearing of the plantar fascia due to repetitive stress and overuse. * The patient was counseled on conservative management of plantar fasciitis, including daily stretching exercises targeting the plantar fascia and Achilles tendon, use of supportive and properly fitting footwear, and consideration of custom or prefabricated orthotics to improve foot biomechanics. * Continue home stretching and range of motion exercises including calf- stretches, frozen water bottle therapy, band-therapy. * Continue Powerstep and supportive sneakers * Continue meloxicam has not needed * Follow up in 1 month. Possible steroid injection if A1c improves. 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 Explained that their high arch foot type (Cavus feet) can lead to altered weight distribution, resulting in increased pressure on the heel and forefoot. Patients may experience symptoms such as pain, callus formation, tendinitis, instability, lateral ankle sprains, and, in some cases, development of digital deformities (e.g., claw toes or hammertoes). Discussed the importance of shoe type with heel and forefoot padding and support.. (4) Paronychia of great toe, left: Code(s): L03.032 - Cellulitis of left toe Category: Medical Plan: * We will continue to monitor. * The patient was advised to present if he is source notice increased pain or any signs of infection. 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
== END 2025-11-03 14:55 | disposition home or self-care (01) ==
LOC: HO.HPODS 14:28
PROVIDERS: PCP Nurse Practitioner Primary Care; Visit Provider Student in an Organized Health Care Education/Training Program
DX: M72.2 Plantar fascial fibromatosis (principal); E11.9 Type 2 diabetes mellitus without complications; Z79.4 Long term (current) use of insulin; Q66.71 Congenital pes cavus, right foot; Q66.72 Congenital pes cavus, left foot; L03.032 Cellulitis of left toe
CPT/HCPCS: 99213

== ENCOUNTER 2025-11-03 14:27 | Outpatient (REF) | payer MEDICAID, SELFPAY ==
--- OUTSIDE RECORDS SUMMARY | 2025-11-03 18:05 | XMS_ITS | Encounter Summary ---
Author Organization [employer] Address [address] [place] [address] Care Team Providers Care Department Clinician Name Role Phone Enriqueta Rice MD Primary Care Provide r Reason for Visit * Reason Comments Med Refill Encounter Details Date Type Department Care Team ([facility] st Contact Info) Description 09/21/2025 Refill [facility] [address], [place] [phone] Sridevi Lomeli, ANP [address] [place] [address] Nasal congestion Social History Tobacco Use Types [...] sinuses documented in this encounter Care Teams Department Clinician Relationship Specialty Start Date End Date Enirqueta Rice MD [address] [place] [address] [id number] PCP - General Internal Medicine 09/23/25 documented as of this encounter
--- OUTSIDE RECORDS SUMMARY | 2025-11-03 18:06 | XMS_ITS | Clinical Summary ---
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 2 mL 5 Active losartan (Cozaar) 50 MG tabletIndications :Hypertension associated with diabetes ([facility]) TOME 1 TABLETA POR VIA ORAL TODOS LOS ALLEN 90 tablet 5 Active FREESTYLE LITE test stripIndications: Type 2 diabetes mellitus with hyperglycemia, without long-term current use of insulin ([facility]) Use to test blood sugar 3 times daily 100 each 12 5 09/23/20 26 Active Tirzepatide (Mounjaro) 5 MG/0.5ML solution auto-injectorIndi cations:Type 2 diabetes mellitus with hyperglycemia, without long-term current use of insulin ([facility]) Inject 5 mg under the skin 1 [...] Encounters Date Type Department Care Team Description 10/22/2025 Orders Only [facility] External Provider, [facility] 09/23/2025 9:30 AM EDT Office Visit [facility] MEDICINE [address] [place] [phone] Enriqueta Rice MD Bilateral carpal tunnel syndrome (Primary Dx); Type 2 diabetes mellitus with hyperglycemia, without long-term current use of insulin ([facility]); Chronic pain of both feet 09/23/2025 Travel 09/22/2025 Telephone [facility] MEDICINE [address] [place] [phone] Enriqueta Rice MD Chart Prep 09/21/2025 Refill [facility]ENTER [address] [place] [phone] Sridevi Lomeli ANP Nasal congestion 09/16/2025 Patient Outreach [facility] MED & PEDS [address] [place] [address] Enriqueta Rice MD Pre-visit Planning (SDOH unable to reach LVM ) 08/19/[address] [address] Sridevi Lomeli ANP Hypertension associated with diabetes (CMS/HCC) 08/19/2025 Results Follow-Up [address] [address] Sridevi Lomeli ANP Hemoglobin A1c, Lipid Panel, Standard, Hepatic Function Panel, Additional followed-up results: 12 08/17/2025 11:20 AM EDT Clinical Support [facility] [address] [place] [phone] Fernanda Martell, [place] Elevated blood pressure reading without diagnosis of hypertension [R03.0] 08/17/2025 Travel 08/17/2025 Orders Only [address] [address] Sridevi Lomeli ANP Hypertension associated with diabetes (CMS/HCC) (Primary Dx) 08/16/2025 1:00 PM EDT Office Visit [facility] WALK-IN [address] [address] Sridevi Lomeli ANP Sore throat (Primary Dx); Elevated blood pressure reading without diagnosis of hypertension; Dietary counseling; Exercise counseling; Nasal congestion; Prediabetes; Hepatic steatosis; Need for hepatitis B screening test; Screening examination for STI; Balanitis; Hypertension associated with diabetes (CMS/HCC); Need for hepatitis B vaccination 08/16/2025 Telephone [facility] [address] [place] [phone] Sridevi oLmeli ANP BP cuff rx 08/16/2025 Travel from [...] - PCV) 2013 COVID-19 Vaccine (1 - 2024-2 6 season) 2025 Diabetes: Hemoglobin [...] Procedure Name Priority Date/Time Associated Diagnosis Comments XR FOOT 3+ VIEWS BILATERAL Routine 10/22/2025 11:36 AM EST POCT GLUCOSE Routine 09/23/2025 9:49 AM EDT [...] throat from Last 3 Months Results * XR Foot 3+ Views Bilateral (10/22/2025 11:36 AM EST) Anatomical Region Laterality Modality Lower Extremities, Foot Bilateral Radiogra phic Imaging 10/22/2025 11:3 6 AM EST Narrative 10/22/2025 4:50 PM EST [address] [address] XRay Report Signed Patient: Flo Rowan MR#: [id number] : 1995 Acct:[id number] Age/Sex: 30 / M ADM Date: 10/22/25 Loc: HO.JACQUIEAY Attending Dr: James Barrow DPM Ordering Physician: James Barrow DPM Date of Service: 10/22/25 Procedure(s): XR Foot Yovani 3V Accession Number(s): [id number] cc: Enriqueta Rice MD; James Barrow DPM Reason for Exam: M72.2 - Plantar fascial fibromatosis EXAMINATION: X-ray bilateral feet CLINICAL INFORMATION: Plantar fascial fibromatosis. COMPARISON: None TECHNIQUE: Right foot 3 views. Left foot 3 views. FINDINGS: Right foot: No evidence of acute fracture. Corticated ossification along the proximal base of the fifth metatarsal, has a chronic appearance, could reflect sequela of remote fracture or ossicle. No significant joint space narrowing. No marginal osteophytes. No osseous erosion. No abnormal soft tissue calcification. Small posterior calcaneal enthesopathy. Left foot: No fracture. No significant joint space narrowing. No marginal osteophytes. No osseous erosion. No joint effusion. No abnormal soft tissue calcification. Small posterior calcaneal insertional enthesopathy. XR/XR Foot Yovani 3V IMPRESSION: Right foot: No acute findings Left foot: No acute findings Electronically signed by: Mars Burnham MD 10/22/2025 04:47 PM [facility] Dictated By: Mars Burnham MD Signed By: <Electronically signed by Mars Burnham MD in OV> 10/22/25 1647 DD/ 1136 TD/TT: 10/22/25 1141 Gang Worker: Procedure Note Donotuseinterpreter, Image - 10/22/[address] [address] XRay Report Signed Patient: Camacho Rowan#: [id number] : 1995Acct:[id number] Age/Sex: 30 / MADM Date: 10/22/25 Loc: HO.XRAY Attending Dr: James Barrow DPM Ordering Physician: James Barrow DPM Date of Service: 10/22/25 Procedure(s): XR Foot Yovani 3V Accession Number(s): [id number] cc: Enriqueta Rice MD; James Barrow DPM Reason for Exam: M72.2 - Plantar fascial fibromatosis EXAMINATION: X-ray bilateral feet CLINICAL INFORMATION: Plantar fascial fibromatosis. COMPARISON: None TECHNIQUE: Right foot 3 views. Left foot 3 views. FINDINGS: Right foot: No evidence of acute fracture. Corticated ossification along the proximal base of the fifth metatarsal, has a chronic appearance, could reflect sequela of remote fracture or ossicle. No significant joint space narrowing. No marginal osteophytes. No osseous erosion. No abnormal soft tissue calcification. Small posterior calcaneal enthesopathy. Left foot: No fracture. No significant joint space narrowing. No marginal osteophytes. No osseous erosion. No joint effusion. No abnormal soft tissue calcification. Small posterior calcaneal insertional enthesopathy. XR/XR Foot Yovani 3V IMPRESSION: Right foot: No acute findings Left foot: No acute findings Electronically signed by: Mars Burnham MD 10/22/2025 04:47 PM [facility] Dictated By: Mars Burnham MD Signed By: <Electronically signed by Mars Burnham MD in OV> 10/22/25 1647 DD/ 1136 TD/TT: 10/22/25 1141 Gang Worker: SHAGGY [facility] External Provider IMG XR PROCEDURES Final Result * POCT Glucose (09/23/2025 9:49 AM EDT) Glucose Blood, POC 128 60 - 200 mg/dL QC Media Lot # [id number] Lot# Expiration Date Blood Capillary blood specimen / Unknown 09/23/2025 9:49 AM EDT Result [facility] Enriqueta Yi MD POINT OF CARE TEST EN TER/EDIT ORDERABLES Final Result * Syphilis Screen (08/17/2025 1:18 PM EDT) Syphilis Screen Nonreactive Nonreactive [facility] Blood Venous blood specimen / Unknown 08/17/2025 1:18 PM EDT 08/17/2025 4:04 PM EDT Sridevi Lomeli [facility] BLOOD ORDERABLES Final Resul t [facility] [address] [place] [phone] * (ABNORMAL) CBC auto differential (08/17/2025 1:18 PM EDT) White Blood Count 6.0 4.8 - 10.8 X10*3/uL [facility] Red Blood Count 6.07(H) 4.60 - 5.80 X10*6/uL [facility] Hemoglobin 17.7 14.0 - 18.0 g/dl [facility] Hematocrit 51.5 42.0 - 52.0 % [facility] Mean Corpuscular Volume 84.8 80.0 - 98.0 fL [facility] Mean Corpuscular Hemoglobin 29.2 27.0 - 33.0 pg [facility] Mean Corpuscular HGB Conc 34.4 31.0 - 36.0 g/dl [facility] Red Cell Distribution Width 11.9 11.0 - 16.0 % [facility] Platelet Count 220 160 - 400 X10*3/uL [facility] Mean Platelet Volume 12.3 9.4 - 12.4 fL [facility] Neutrophils Percent Auto 47.9 45 - 73 % [facility] Imm Gran Pct Auto 0.2 0.0 - 0.4 % [facility] Lymphocytes Percent Auto 36.3 20 - 40 % [facility] Monocytes Percent Auto 11.4(H) 2 - 11 % [facility] Eosinophils Percent Auto 3.4 0 - 4 % [facility] Basophils Percent Auto 0.8 0 - 2 % [facility] NRBC Pct Auto 0.0 0.0 - 0.2 /100WBC [facility] Neutrophils Absolute Auto 2.9 2.0 - 8.3 x10*3/uL [facility] Imm Gran Abs Auto 0.01 0.00 - 0.03 X10*3/uL [facility] Lymphocytes Absolute Auto 2.2 1.2 - 4.9 X10*3/uL [facility] Monocytes Absolute Auto 0.7 0.1 - 1.2 X10*3/uL [facility] Eosinophils Absolute Auto 0.2 0.0 - 0.4 X10*3/uL [facility] Basophils Absolute Auto 0.1 0.0 - 0.2 X10*3/uL [facility] NRBC Abs Auto 0.000 0.0 - 0.012 X10*3/uL [facility] Blood Venous blood specimen / Unknown 08/17/2025 1:18 PM EDT 08/17/2025 4:04 PM EDT Sridevi Lomeli [facility] BLOOD ORDERABLES Final Resul t Performing Organization Address [facility] Co de Phone Number [facility] [address] [place] [phone] * Hepatitis C Antibody with Reflex to HCV, RNA, Quantitative, Real-Time PCR (08/17/2025 1:18 PM EDT) Pathologist [facility] Hepatitis C Antibody Nonreactive Nonreactive [facility] Comment:Antibodies to HCV no t detected; does not exclude early acuteHCV infection. Blood Venous blood specimen / Unknown 08/17/2025 1:18 PM EDT 08/17/2025 4:04 PM EDT Sridevi Lomeli [facility] LAB BLOOD ORDERABLES Final Resul t Performing Organization Address [facility] Co de Phone Number [facility] [address] [place] [phone] * Hepatitis B surface antigen, EIA (08/17/2025 1:18 PM EDT) Pathologist [facility] Hepatitis B Surface Ag Negative Negative [facility] Blood Venous blood specimen / Unknown 08/17/2025 1:18 PM EDT 08/17/2025 4:04 PM EDT Sridevi Lomeli [facility] LAB BLOOD ORDERABLES Final Resul t Performing Organization Address City/[facility]/ZIP Co de Phone Number [facility] [address] [place] [phone] * Hepatitis B Core Antibody, Total (08/17/2025 1:18 PM EDT) Hepatitis B Core Antibody Nonreactive Nonreactive [facility] Blood Venous blood specimen / Unknown 08/17/2025 1:18 PM EDT 08/17/2025 4:04 PM EDT Sridevi Lomeli [facility] LAB BLOOD ORDERABLES Final Resul t Performing Organization Address [facility] de Phone Number [facility] [address] [place] [phone] * HIV-1/2 Antigen and Antibodies, Fourth Generation, with Reflexes (08/17/2025 1:18 PM EDT) Pathologist [facility] HIV AB/AG Nonreactive Nonreactive [facility] Comment:HIV-1 p24 Ag and/or HIV-1/HIV-2 Ab not detected.A test result that is nonreactive does not exclude thepossibility of exposure to or infection with HIV-1 and/orHIV-2. Nonreactive results in this assay for individualswith prior exposure to HIV-1 and/or HIV-2 may be due toantigen and antibody levels that are below the limit ofdetection of this assay.The [employer] HIV Ag/Ab Combo assay result andsupplemental assay results should be interpreted inconjunction with the patient's clinical presentation,history and other laboratory results. If the results areinconsistent with clinical evidence, additional testing issuggested to confirm the result. Blood Venous blood specimen / Unknown 08/17/2025 1:18 PM EDT 08/17/2025 4:04 PM EDT Sridevi Lomeli ANP LAB BLOOD ORDERABLES Final Resul t Performing Organization Address [facility] Co de Phone Number [facility] [address] [place] [phone] * Hepatitis B Surface Antibody, Qualitative (08/17/2025 1:18 PM EDT) ~Hepatitis B Surface Antibody NONREACTIVE Nonreactive [facility] Comment:Nonreactive: < 8.00 mIU/mL Blood Venous blood specimen / Unknown 08/17/2025 1:18 PM EDT 08/17/2025 4:04 PM EDT Sridevi Lomeli ANP LAB BLOOD ORDERABLES Final Resul t Performing Organization Address [facility] Phone Number [facility] [address] [place] [phone] * (ABNORMAL) Hemoglobin A1c (08/17/2025 1:18 PM EDT) Hemoglobin A1c 9.8(H) <6.0 % [facility] Comment:Hemoglobin A1C Refer ence Range Adults: 4.8 - 6.0 % Non diabetic: < 6.0 % Goal: < 7.0 %Additional Action Suggested: > 8.0 %Note: Hemoglobin A1c results are invalid for patients with abnormal amounts of HbF. Blood transfusions may impact the HbA1c concentration in the patient sample. Estimated Average Glucose 235 mg/dL [facility] Comment:eAG = Estimated ave rage glucose which is %A1C expressed asaverage glucose, using the formula of the E2P-TundwnzKwyobsm Glucose study (ADAG), Diabetes Care, Vol.31,#8,Jul. 2007 Blood Venous blood specimen / Unknown 08/17/2025 1:18 PM EDT 08/17/2025 4:04 PM EDT Sridevi Lomeli ANP LAB BLOOD ORDERABLES Final Resul t Performing Organization Address [facility] Co de Phone Number [facility] [address] [place] [phone] * (ABNORMAL) Hepatic Function Panel (08/17/2025 1:18 PM EDT) Bilirubin, Total 0.6 0.0 - 1.0 mg/dL [facility] Bilirubin, Direct 0.2 0.0 - 0.5 mg/dL [facility] Aspartate Amino Transferase 67(H) 5 - 37 U/L [facility] Alanine Aminotransferase 199(H) 0 - 40 U/L [facility] Total Protein 7.8 6.5 - 8.0 g/dL [facility] Albumin Level 4.9 3.5 - 5.0 g/dL [facility] Alkaline Phosphatase 82 39 - 117 U/L [facility] Blood Venous blood specimen / Unknown 08/17/2025 1:18 PM EDT 08/17/2025 4:04 PM EDT [facility] LAB BLOOD ORDERABLES Final Resul t [facility] [address] [place] [phone] * (ABNORMAL) Lipid Panel, Standard (08/17/2025 1:18 PM EDT) Triglycerides 315(H) <150 mg/dL [facility] Comment:Desirable Triglyceri de: less than 150 mg/dLBorderline High Triglyceride 150-199 mg/dLHigh Triglyceride: 200-499 mg/dLVery High Triglyceride: greater than or equal to 5OO mg/dL Cholesterol 174 <200 mg/dL [facility] Comment:Desirable Cholestero l: less than 200 mg/dLBorderline High Cholesterol: 200-239 mg/dLHigh Cholesterol: greater than 239 mg/dL LDL Cholesterol Calculated 82 <100 mg/dL [facility] Comment:Desirable LDL: less than 100 mg/dLNear Optimal/Above Optimal LDL: 110- 129 mg/dLBorderline High LDL: 130-159 mg/dLHigh LDL: 160-189 mg/dLVery High LDL: greater than or equal to 190 mg/dL HDL Cholesterol 29(L) >40 mg/dL [facility] Comment:Desirable HDL: great er than 40 mg/dL Note: This HDL assay may give artificially low results in patients with liver disease. Blood Venous blood specimen / Unknown 08/17/2025 1:18 PM EDT 08/17/2025 4:04 PM EDT Sridevi Lomeli [facility] LAB BLOOD ORDERABLES Final Resul t Performing Organization Address [facility] Co de Phone Number [facility] [address] [place] [phone] * (ABNORMAL) Basic Metabolic Panel (08/17/2025 1:18 PM EDT) Sodium 139 135 - 145 mmol/L [facility] Potassium 4.9 3.3 - 5.1 mmol/L [facility] Chloride 101 96 - 108 mmol/L [facility] Carbon Dioxide 31(H) 22 - 29 mmol/L [facility] Anion Gap 12 12 - 20 [facility] Urea Nitrogen (BUN) 12 9 - 16 mg/dL [facility] Creatinine, Serum 1.28 0.5 - 1.4 mg/dL [facility] Estimated Glomerular Filt Rate >60 [facility] Comment:Chronic Kidney Disea se: Estimated GFR < 60 mL/min/1.32i2Ugrlia Kidney Disease: Estimated GFR < 15 mL/min/1.73m2 Glucose 298(H) 60 - 115 mg/dL [facility] Calcium 9.6 8.4 - 10.2 mg/dL [facility] Blood Venous blood specimen / Unknown 08/17/2025 1:18 PM EDT 08/17/2025 4:04 PM EDT Sridevi Lomeli AN[facility] LAB BLOOD ORDERABLES Final Resul t Performing Organization Address [facility]/ZIP Co de Phone Number [facility] [address] [place] [phone] * Influenza B (ID NOW Rapid Molecular) (08/16/2025 1:51 PM EDT) [facility] Influenza B Negative Negative, Indeterminate [facility] Swab 08/16/2025 1:51 PM EDT us Sridevi Lomeli ANP POINT OF CARE TEST ENTER/EDIT OR DERABLES Final Result Performing Organization Address [facility] Co de Phone Number [facility] [address] [place] [phone] * Influenza A (ID NOW Rapid Molecular) (08/16/2025 1:51 PM EDT) [facility] Influenza A Negative Negative, Indeterminate [facility] Swab 08/16/2025 1:51 PM EDT Sridevi Lomeli ANP POINT OF CARE TEST ENTER/EDIT OR DERABLES Final Result Performing Organization Address [facility] Co de Phone Number [facility] [address] [place] [phone] * POCT Rapid COVID Ag (08/16/2025 1:51 PM EDT) [facility] Rapid COVID Ag Negative [facility] Swab 08/16/2025 1:51 PM EDT Sridevi Lomeli ANP POINT OF CARE TEST ENTER/EDIT OR DERABLES Final Result Performing Organization Address [facility] Co de Phone Number [facility] [address] [place] [phone] * POCT rapid strep A manually resulted (08/16/2025 1:51 PM EDT) [facility] Rapid Strep A Screen Negative Negative, None Detected [facility] Swab 08/16/2025 1:51 PM EDT us Sridevi Lomeli ANP POINT OF CARE TEST ENTER/EDIT OR DERABLES Final Result [facility] [address] [place] [phone] from Last 3 Months Insurance [facility] C3 Care Teams Steam Heating Installer Relationship Specialty Start Date End Date Enriqueta Rice MD [address] [place] [phone] PCP - General Internal Medicine 09/23/25
== END 2025-11-03 14:28 | disposition home or self-care (01) ==
LOC: HO.HKASLDS 14:27
PROVIDERS: PCP Internal Medicine; Visit Provider Student in an Organized Health Care Education/Training Program
DX: M72.2 Plantar fascial fibromatosis (principal); Q66.71 Congenital pes cavus, right foot; Q66.72 Congenital pes cavus, left foot; L03.032 Cellulitis of left toe; E11.9 Type 2 diabetes mellitus without complications; Z79.4 Long term (current) use of insulin
CPT/HCPCS: 36415; 83036; 99212

== ENCOUNTER 2025-11-12 09:03 | Emergency (ER) | payer MEDICAID, SELFPAY ==
--- NOTE | ~2025-11-12 | CT_ITS ---
EXAMINATION: CT ABDOMEN AND PELVIS WITH CONTRAST CLINICAL INFORMATION: Right lower quadrant tenderness COMPARISON: None available. TECHNIQUE: Multidetector volumetric images were obtained from the superior aspect of the liver through the pubic symphysis following administration 85 mL of Omnipaque 350 intravenous contrast. Sagittal and coronal reformatted images were obtained on the technologist's workstation. Oral contrast: No This CT examination was performed using dose optimization techniques as appropriate, variously including the following: *Automated exposure control *Adjustment of mA and/or kV according to patient size (this includes techniques or standardized protocols for targeted exams where dose is matched to indication/reason for exam; i.e. extremities or head) *Use of iterative reconstruction technique FINDINGS: LUNG BASES: There is minimal dependent atelectasis. LIVER, GALLBLADDER, AND BILIARY TREE: The liver is normal in size, shape, and attenuation. No focal hepatic lesion or biliary ductal dilatation is present. The gallbladder is unremarkable with no evidence of radiopaque gallstones, gallbladder wall thickening, or obvious pericholecystic inflammatory changes. PANCREAS: Unremarkable. SPLEEN: Unremarkable. ADRENAL GLANDS: Unremarkable. KIDNEYS AND URETERS: The kidneys are normal in size, shape, and attenuation. No hydronephrosis, hydroureter, or calculi seen. No perinephric stranding. BLADDER: Unremarkable. GASTROINTESTINAL TRACT: The small and large bowel are unremarkable. The appendix is partially fluid filled but not dilated or thick-walled. ABDOMINAL WALL: No significant hernia is appreciated. LYMPH NODES: Normal. VASCULAR: Unremarkable. PELVIC VISCERA: Unremarkable. OSSEOUS STRUCTURES: Unremarkable. CT/CT abdomen pelvis w IV con IMPRESSION: No abnormality detected that would explain the patient's right lower quadrant tenderness. Fleischner guidelines were followed. Electronically signed by: Chris Epps MD 11/12/2025 02:32 PM [facility]
[2025-11-12 09:22] VITALS: BP 124/78; PULSE 118; RESP 18; TEMP 36.7; O2SAT 97; BMI 34.9
[2025-11-12 09:39] LABS: MANUAL DIFF FLAG NO
[2025-11-12 09:41] LABS: Imm Gran Abs Auto 0.04 X10*3/uL (0.00-0.03); Imm Gran Pct Auto 0.3 % (0.0-0.4); Lymphocytes Absolute Auto 1.5 X10*3/uL (1.2-4.9); Mean Corpuscular HGB Conc 34.2 g/dl (31.0-36.0); Mean Corpuscular Hemoglobin 28.8 pg (27.0-33.0); Mean Corpuscular Volume 84.1 fL (80.0-98.0); NRBC Abs Auto 0.000 X10*3/uL (0.0-0.012); NRBC Pct Auto 0.0 /100WBC (0.0-0.2); Platelet Count 316 X10*3/uL (160-400); Red Blood Count 6.98 X10*6/uL (4.60-5.80); White Blood Count 14.4 X10*3/uL (4.8-10.8)
[2025-11-12 09:54] LABS: Hematocrit 58.7 % (42.0-52.0); Hemoglobin 20.1 g/dl (14.0-18.0)
[2025-11-12 09:56] LABS: Alanine Aminotransferase 117 U/L (0-40); Albumin Level 6.0 g/dL (3.5-5.0); Alkaline Phosphatase 78 U/L (39-117); Anion Gap 15 (12-20); Aspartate Amino Transferase 40 U/L (5-37); Blood Urea Nitrogen 20 mg/dL (9-16); Calcium 10.6 mg/dL (8.4-10.2); Carbon Dioxide 25 mmol/L (22-29); Chloride 104 mmol/L (96-108); Creatinine Clr Calc Pharmacy 74.6; Estimated Glomerular Filt Rate 54; Potassium 4.9 mmol/L (3.3-5.1); Sodium 139 mmol/L (135-145); Total Protein 9.4 g/dL (6.5-8.0)
--- NOTE | 2025-11-12 10:07 | PC.NURSE ---
Patient presents to the ED with N/V/D that woke up up this morning at 0200. He points to pain in RLQ abdomen. Patient denies any urinary symptoms. VSS. IV established in left FA.
[2025-11-12 10:23] LABS: Resp Syncy Virus RNA Qual PCR NEGATIVE (Negative); SARS COV2 PCR INHOUSE NEGATIVE (Negative)
--- NOTE | 2025-11-12 10:35 | ED_ITS ---
HPI - General Adult General Chief complaint: Nausea/Vomiting/Diarrhea Stated complaint: General Medical Time Seen by Provider: 11/12/25 10:17 Source: patient, RN notes reviewed and old records reviewed Mode of arrival: ambulatory Limitations: no limitations History of Present Illness ED Provider: Angelina [facility] narrative: Patient is a 30-year-old Sinhala-speaking male presenting in the emergency department with complaint of nausea, vomiting and diarrhea since 3:00 a.m.. Also complaining of right lower quadrant pain. Denies any known sick contacts. Denies history of previous abdominal surgeries. Denies fevers. Denies any hematochezia, melena, hematemesis. MD complaint: nausea, vomiting, diarrhea Onset (ago): hour(s) Related Data Home Medications ?Medication ?Instructions ?Recorded ?Confirmed losartan 25 mg tablet 25 mg PO DAILY 10/06/25 metformin 500 mg tablet 500 mg PO DAILY 10/06/25 tirzepatide 5 mg/0.5 mL 5 mg subcut QWEEK 10/06/25 subcutaneous pen injector (Froilan) Previous Rx's ?Medication ?Instructions ?Recorded meloxicam 15 mg tablet 15 mg PO DAILY Foot pain #30 tabs 10/06/25 ondansetron 4 mg disintegrating 4 mg PO Q8H PRN nausea and 11/12/25 tablet vomiting #10 tabs Allergies Allergy/AdvReac Type Severity Reaction Status Date / Time No Known Allergies Allergy Verified 11/12/25 09:23 Review of Systems 2 Review of Systems: As per HPI Yes all other systems are reviewed and are negative Constitutional: Constitutional: Reports as per HPI [facility] Social History Social History Advance Directives: No Advance Directives Information Provided: Yes Physical Exam ED Vital Signs: Vital Signs - 24 hr 11/12/25 09:22 11/12/25 12:51 Temperature 98.1 F 98.8 F Pulse Rate 118 H 100 Respiratory Rate 18 17 Blood Pressure 124/78 127/89 Pulse Oximetry 97 96 Oxygen Delivery Method Room Air Room Air BMI result Body Mass Index 34.9 Vital signs have been reviewed and appear to be correct. Blood pressure normal. Heart rate tachycardic. Respiratory rate normal. Temperature normal. Oxygen saturation normal. Const General: cooperative, healthy appearing and no acute distress Orientation/consciousness: oriented to person, oriented to place, oriented to time and patient oriented x3 Limitations: no limitations HENMT Head: Yes normocephalic and Yes atraumatic Ears: external ears normal General nose exam: Normal external nose present Face and sinus: Yes face symmetric Mouth: oropharynx normal and moist mucous membranes Throat: Yes uvula midline Eyes Pupils: Equal, round and reactive pupils present Neck Neck: Yes normal visual inspection and Yes supple Resp Effort & Inspection: normal respiratory effort and able to speak in complete sentences Auscultation: clear to auscultation bilaterally Cardio Rate: regular rate Rhythm: regular rhythm Heart sounds: S1 normal heart sound present and S2 normal heart sound present GI Palpation (GI): Soft to palpation and Tenderness to palpation present (GI) in the RLQ Auscultation: normoactive bowel sounds General: Yes no CVA tenderness Back/Spine/Pelvis Back: no CVA tenderness Skin General skin exam: elasticity normal and turgor normal Neuro General: oriented to person, oriented to place, oriented to time, patient oriented x3, moves all extremities, no focal motor deficits and CN's II-XI intact bilaterally Cranial nerves: Yes Equal, round and reactive pupils present Cognition (Neuro): normal cognition Extrem General: Yes full ROM, Yes no pedal edema and Yes no calf tenderness Psych Mental Status: mental status grossly normal Affect: normal affect Thought process: Normal thought process present Medications Administered Discontinued Medications Generic Name Dose Route Start Last Admin Trade Name Stevie PRN Reason Stop Dose Admin Lactated Ringer's 1,000 mls @ 999 mls/hr 11/12/25 10:45 11/12/25 12:31 Lr IV 11/12/25 11:45 Infused .Q1H1M EVERETT Infusion Iohexol 100 ml 11/12/25 13:23 11/12/25 13:25 Iohexol 350 Mg/Ml 100 Ml Infus..Btl IV 11/12/25 13:24 85 ml ONCE ONE Administration Ondansetron HCl 4 mg 11/12/25 10:36 11/12/25 10:47 Ondansetron Hcl 4 Mg/2 Ml Vial IVPUSH 11/12/25 10:37 4 mg ONCE ONE Administration Medical Decision Making Medical Decision Making [facility] Narrative: Patient is a 30-year-old Sinhala-speaking male presenting in the emergency department with complaint of nausea, vomiting and diarrhea since 3:00 a.m.. On exam patient is awake, A+Ox3, VS WNL, afebrile, normal neurological exam without focal deficits, physical exam findings as above. Given reported symptoms and physical exam findings, initial differential includes but is not limited to appendicitis, electrolyte abnormality, dehydration, diverticulitis. Labs notable for leukocytosis of 14.4, erythrocytosis, mildly elevated BUN/creatinine, elevated transaminases similar to prior values. Prior elevated RBCs on labs from 08/17. CT A/P notable for no acute abnormalities to explain RLQ tenderness. My interpretation is in agreement with the radiologist's interpretation. Results discussed with patient and all questions answered. Advised him to follow up with his PCP for repeat labs this week. Will discharge home with Zofran. Advised patient to stick to clear liquids today, then progress diet slowly as tolerated. Return precautions discussed. Patient verbalized understanding of and agreement with plan. In-person commercial credit specialist was utilized for all interactions, assessments, and discussions. Differential Diagnosis Differential Diagnoses: The differential diagnosis associated with the presentation includes as per [facility] Admission/Observation Consideration of admission/observation: Escalation of care including admission/observation considered Patient would have been admitted to the hospital and transferred to appropriate facility had their clinical presentation warranted hospital admission. Lab Data [facility] Lab Attestation statement: I reviewed the patient's lab results. as per [facility] 11/12/25 09:34 11/12/25 09:34 Labs: Lab Results 11/12/25 Range/Units 09:34 WBC 14.4 H (4.8-10.8) X10*3/uL RBC 6.98 H (4.60-5.80) X10*6/uL Hgb 20.1 H (14.0-18.0) g/dl Hct 58.7 H (42.0-52.0) % MCV 84.1 (80.0-98.0) fL MCH 28.8 (27.0-33.0) pg MCHC 34.2 (31.0-36.0) g/dl RDW 12.2 (11.0-16.0) % Plt Count 316 D (160-400) X10*3/uL MPV 11.4 (9.4-12.4) fL Immature Gran % (Auto) 0.3 (0.0-0.4) % Neut % (Auto) 82.6 H (45-73) % Lymph % (Auto) 10.1 L (20-40) % [place] % (Auto) 5.3 (2-11) % Eos % (Auto) 1.5 (0-4) % Baso % (Auto) 0.2 (0-2) % Lymph # (Auto) 1.5 (1.2-4.9) X10*3/uL [place] # (Auto) 0.8 (0.1-1.2) X10*3/uL Eos # (Auto) 0.2 (0.0-0.4) X10*3/uL Baso # (Auto) 0.0 (0.0-0.2) X10*3/uL Abs Immat Gran (auto) 0.04 H (0.00-0.03) X10*3/uL Absolute Neuts (auto) 11.9 H (2.0-8.3) x10*3/uL Absolute Nucleated RBC 0.000 (0.0-0.012) X10*3/uL Nucleated RBC % (auto) 0.0 (0.0-0.2) /100WBC Sodium 139 (135-145) mmol/L Potassium 4.9 (3.3-5.1) mmol/L Chloride 104 (96-108) mmol/L Carbon Dioxide 25 (22-29) mmol/L Anion Gap 15 (12-20) BUN 20 H (9-16) mg/dL Creatinine 1.52 H (0.5-1.4) mg/dL Estim Creat Clear Calc 74.6 Estimated GFR 54 Random Glucose 138 H (60-115) mg/dL Calcium 10.6 H D (8.4-10.2) mg/dL Magnesium 2.5 (1.6-2.6) mg/dL Total Bilirubin 1.1 H (0.0-1.0) mg/dL AST 40 H (5-37) U/L ALT 117 H (0-40) U/L Alkaline Phosphatase 78 (39-117) U/L Total Protein 9.4 H (6.5-8.0) g/dL Albumin 6.0 H (3.5-5.0) g/dL Influenza Type A (PCR) NEGATIVE (Negative) Influenza Type B (PCR) NEGATIVE (Negative) RSV RNA Qual (PCR) NEGATIVE (Negative) SARS-CoV-2 RNA (RT-PCR) NEGATIVE (Negative) Independent Interpretation I performed an independent interpretation of an: CT Scan Interpretation: CT A/P without acute abnormality. Radiology Impression Discussion of test interpretation with radiology: I have reviewed the radiologist's reading. Radiologist Impression: CT/CT abdomen pelvis w IV con IMPRESSION: No abnormality detected that would explain the patient's right lower quadrant tenderness. Fleischner guidelines were followed. External Record Review External record reviewed: Inpatient record, Office record and Outpatient record Prescription Management I considered prescription management with: Other Discharge Plan Discharge Clinical Impression: Gastroenteritis Patient Disposition: Home, Self-Care Instructions: Gastroenteritis (DC), Acute Nausea and Vomiting (DC), Acute Diarrhea (ED) Additional Instructions: You have been evaluated in the emergency department today for nausea, vomiting, and diarrhea. Your evaluation suggests that your symptoms are most likely due to a viral illness which will improve on it's own with rest and fluids. Remember to drink plenty of fluids at home. You are being prescribed ondansetron which you can use as per the prescription instructions for nausea. Please follow up with your primary care provider within two days for repeat labs because your RBCs, hemoglobin, and hematocrit were elevated today. Return to the emergency department if you experience worsening or uncontrolled pain, inability to tolerate fluids by mouth, difficulty breathing, fevers 100.4? F or greater, recurrent vomiting, or any other concerning symptoms. Prescriptions: New ondansetron 4 mg tablet,disintegrating 4 mg PO Q8H PRN (Reason: nausea and vomiting) Qty: 10 0RF No Action metformin 500 mg tablet 500 mg PO DAILY Mounjaro 5 mg/0.5 mL pen injector 5 mg subcut QWEEK losartan 25 mg tablet 25 mg PO DAILY meloxicam 15 mg tablet 15 mg PO DAILY Qty: 30 1RF Stand Alone Forms: Work/School Release Print Language: Sinhala
[2025-11-12] MEDS: Lactated Ringers 1,000 ML 999 ML IV (10:47)
[2025-11-12 10:54] LABS: Magnesium 2.5 mg/dL (1.6-2.6)
[2025-11-12 12:51] VITALS: BP 127/89; PULSE 100; RESP 17; TEMP 37.1; O2SAT 96
[2025-11-12] MEDS: iohexoL 350 MG/ML 100 ML INFUS..BTL IV (13:25)
== END 2025-11-12 16:22 | disposition home or self-care (01) ==
PROVIDERS: Registered Nurse Emergency; Emergency Provider Emergency Medicine; PCP Internal Medicine
DX: K52.9 Noninfective gastroenteritis and colitis, unspecified (principal); R11.2 Nausea with vomiting, unspecified; R10.31 Right lower quadrant pain; Z03.818 Encounter for observation for suspected exposure to other biological agents ruled out
CPT/HCPCS: 74177; 80053; 83735; 85025; 87637; 96361; 96374; 99283; 99284; J2405; J7120; Q9967

== ENCOUNTER → 2025-11-12 11:21 | Outpatient (BNV) | payer MEDICAID, SELFPAY | PROVIDERS: Emergency Provider Emergency Medicine; PCP Internal Medicine; Visit Provider Radiology Diagnostic Radiology | DX: R10.813 Right lower quadrant abdominal tenderness (principal) | CPT/HCPCS: 74177 ==

== ENCOUNTER 2025-11-17 11:45 | Emergency (ER) | payer MEDICAID, SELFPAY ==
[2025-11-17 12:22] VITALS: BP 143/82; PULSE 86; RESP 16; TEMP 36.6; O2SAT 97; BMI 35.1
--- NOTE | 2025-11-17 12:23 | ED_ITS ---
HPI - General Adult General Chief complaint: Nausea/Vomiting/Diarrhea Stated complaint: N/V/D Time Seen by Provider: 11/17/25 14:20 History of Present Illness ED Provider: lor HPI narrative: 30-year-old male with less than 24 hours of a recurrence of watery stool and mild generalized abdominal cramping. Denies fever, no blood in the stool, nausea, vomiting, slight decreased PO intake. No surgical history. Denies rectal pain. Related Data Home Medications ?Medication ?Instructions ?Recorded ?Confirmed losartan 25 mg tablet 25 mg PO DAILY 10/06/25 metformin 500 mg tablet 500 mg PO DAILY 10/06/25 tirzepatide 5 mg/0.5 mL 5 mg subcut QWEEK 10/06/25 subcutaneous pen injector (Froilan) Previous Rx's ?Medication ?Instructions ?Recorded meloxicam 15 mg tablet 15 mg PO DAILY Foot pain #30 tabs 10/06/25 ondansetron 4 mg disintegrating 4 mg PO Q8H PRN nausea and 11/12/25 tablet vomiting #10 tabs dicyclomine 10 mg capsule 10 mg PO QID PRN abdominal p ain #7 11/17/25 caps ondansetron 4 mg disintegrating 4 mg PO Q8H PRN nausea and 11/17/25 tablet vomiting #7 tabs Allergies Allergy/AdvReac Type Severity Reaction Status Date / Time No Known Allergies Allergy Verified 11/17/25 12:27 [facility] Social History Social History Advance Directives: No Advance Directives Information Provided: Yes Physical Exam ED Exam Exam: EXAM: Gen: Alert, awake, well appearing, well hydrated. Head: Atraumatic Eyes: Anicteric, Normal conjunctiva. ENT: Moist mucosa, no pallor. Neck: Supple. Respiratory: Breathing comfortably, No distress.Clear to auscultation bilaterally, symmetric chest expansion, No wheeze, rales, ronchi. Cardiovascular: Regular rate and rhythm. No murmurs or rub. Well perfused periphery, warm extremities. No edema. Abdominal: Soft, no objective distension. No palpable masses or obvious organomegaly. No focal tenderness, no guarding, no rebound tenderness or other peritoneal findings. : No flank tenderness. Neuro: Alert. Gross movement of all extremities intact. Vital signs: See flowsheet Vital Signs: BMI result Body Mass Index 35.1 Course Course Course Narrative: This is a rapid medical exam performed by Craig Alfaro NP: Additional HPI, ROS, PE not included below will be deferred to primary provider. Patient is a 30y/o M presenting to the ED with complaint of nausea, vomiting and diarrhea. Seen here for same on 11/12, states felt better after discharge, then symptoms returned today. Generalized abdominal pain. Unable to tolerate any PO. Plan: labs, viral panel Medications Administered Discontinued Medications Generic Name Dose Route Start Last Admin Trade Name Frejavad PRN Reason Stop Dose Admin Dicyclomine HCl 10 mg 11/17/25 16:23 11/17/25 16:45 Dicyclomine Hcl 10 Mg Capsule PO 11/17/25 16:24 10 mg ONCE ONE Administration Lactated Ringer's 1,000 mls @ 999 mls/hr 11/17/25 14:30 11/17/25 18:12 Lr IV 11/17/25 16:30 Infused .Q1H1M [facility] Infusion Ondansetron HCl 4 mg 11/17/25 14:21 11/17/25 15:05 Ondansetron Hcl 4 Mg/2 Ml Vial IVPUSH 11/17/25 14:22 4 mg ONCE ONE Administration Simethicone 160 mg 11/17/25 16:23 11/17/25 16:44 Simethicone 80 Mg Tab.Chew PO 11/17/25 16:24 160 mg ONCE ONE Administration Medical Decision Making Medical Decision Making MDM Narrative: 30 year old male. No significant past medical history. Recurrence of water is still mild cramping abdominal pain. Currently norovirus is in the community. This is likely gastroenteritis. His abdominal exam is benign and reassuring. He has reassuring lab work. Doubt focal bacterial or surgical infection of the abdomen. Reassurance, hydration, anti-emetics as needed. Lab Data 11/17/25 12:37 11/17/25 12:37 Labs: Lab Results 11/17/25 Range/Units 12:37 WBC 11.8 H (4.8-10.8) X10*3/uL RBC 6.44 H (4.60-5.80) X10*6/uL Hgb 18.7 H (14.0-18.0) g/dl Hct 54.8 H (42.0-52.0) % MCV 85.1 (80.0-98.0) fL MCH 29.0 (27.0-33.0) pg MCHC 34.1 (31.0-36.0) g/dl RDW 12.0 (11.0-16.0) % Plt Count 257 (160-400) X10*3/uL MPV 11.3 (9.4-12.4) fL Immature Gran % (Auto) 0.3 (0.0-0.4) % Neut % (Auto) 71.9 (45-73) % Lymph % (Auto) 14.8 L (20-40) % [place] % (Auto) 5.1 (2-11) % Eos % (Auto) 7.7 H (0-4) % Baso % (Auto) 0.2 (0-2) % Lymph # (Auto) 1.8 (1.2-4.9) X10*3/uL [place] # (Auto) 0.6 (0.1-1.2) X10*3/uL Eos # (Auto) 0.9 H (0.0-0.4) X10*3/uL Baso # (Auto) 0.0 (0.0-0.2) X10*3/uL Abs Immat Gran (auto) 0.04 H (0.00-0.03) X10*3/uL Absolute Neuts (auto) 8.5 H (2.0-8.3) x10*3/uL Absolute Nucleated RBC 0.000 (0.0-0.012) X10*3/uL Nucleated RBC % (auto) 0.0 (0.0-0.2) /100WBC Sodium 141 (135-145) mmol/L Potassium 4.5 (3.3-5.1) mmol/L Chloride 104 (96-108) mmol/L Carbon Dioxide 31 H (22-29) mmol/L Anion Gap 11 L (12-20) BUN 15 (9-16) mg/dL Creatinine 1.28 (0.5-1.4) mg/dL Estim Creat Clear Calc 88.9 Estimated GFR > 60 Random Glucose 118 H (60-115) mg/dL Calcium 9.3 D (8.4-10.2) mg/dL Magnesium 2.3 (1.6-2.6) mg/dL Total Bilirubin 0.8 (0.0-1.0) mg/dL AST 34 (5-37) U/L ALT 78 H (0-40) U/L Alkaline Phosphatase 70 (39-117) U/L Total Protein 7.8 (6.5-8.0) g/dL Albumin 5.1 H (3.5-5.0) g/dL Influenza Type A (PCR) NEGATIVE (Negative) Influenza Type B (PCR) NEGATIVE (Negative) RSV RNA Qual (PCR) NEGATIVE (Negative) SARS-CoV-2 RNA (RT-PCR) NEGATIVE (Negative) Discharge Plan Discharge Clinical Impression: Nausea, Diarrhea Patient Disposition: Home, Self-Care Instructions: Acute Nausea and Vomiting (DC), Acute Diarrhea (ED) Additional Instructions: Today we did lab work and hydrated you intravenously. We reviewed the CT scan from yesterday which did not show any acute abnormalities. We have given you a few different medications for pain and abdominal discomfort and nausea including ondansetron, Bentyl, simethicone call your primary doctor for follow up this could be related to the Mounjaro could be stomach or intestinal virus keep yourself hydrated as well as you can Prescriptions: New dicyclomine 10 mg capsule 10 mg PO QID PRN (Reason: abdominal pain) Qty: 7 0RF ondansetron 4 mg tablet,disintegrating 4 mg PO Q8H PRN (Reason: nausea and vomiting) Qty: 7 0RF No Action ondansetron 4 mg tablet,disintegrating 4 mg PO Q8H PRN (Reason: nausea and vomiting) Qty: 10 0RF metformin 500 mg tablet 500 mg PO DAILY Mounjaro 5 mg/0.5 mL pen injector 5 mg subcut QWEEK losartan 25 mg tablet 25 mg PO DAILY meloxicam 15 mg tablet 15 mg PO DAILY Qty: 30 1RF Stand Alone Forms: Work/School Release Interventions: ED Discharge Assessment Last Done: 11/17/25 18:11 Discharge Date/Time: 11/17/25 18:12 Print Language: Czech
[2025-11-17 12:41] LABS: MANUAL DIFF FLAG NO
[2025-11-17 12:43] LABS: Hematocrit 54.8 % (42.0-52.0); Hemoglobin 18.7 g/dl (14.0-18.0); Imm Gran Abs Auto 0.04 X10*3/uL (0.00-0.03); Imm Gran Pct Auto 0.3 % (0.0-0.4); Lymphocytes Absolute Auto 1.8 X10*3/uL (1.2-4.9); Mean Corpuscular HGB Conc 34.1 g/dl (31.0-36.0); Mean Corpuscular Hemoglobin 29.0 pg (27.0-33.0); Mean Corpuscular Volume 85.1 fL (80.0-98.0); NRBC Abs Auto 0.000 X10*3/uL (0.0-0.012); NRBC Pct Auto 0.0 /100WBC (0.0-0.2); Platelet Count 257 X10*3/uL (160-400); Red Blood Count 6.44 X10*6/uL (4.60-5.80); White Blood Count 11.8 X10*3/uL (4.8-10.8)
[2025-11-17 12:58] LABS: Alanine Aminotransferase 78 U/L (0-40); Albumin Level 5.1 g/dL (3.5-5.0); Alkaline Phosphatase 70 U/L (39-117); Anion Gap 11 (12-20); Aspartate Amino Transferase 34 U/L (5-37); Blood Urea Nitrogen 15 mg/dL (9-16); Calcium 9.3 mg/dL (8.4-10.2); Carbon Dioxide 31 mmol/L (22-29); Chloride 104 mmol/L (96-108); Creatinine Clr Calc Pharmacy 88.9; Estimated Glomerular Filt Rate > 60; Magnesium 2.3 mg/dL (1.6-2.6); Potassium 4.5 mmol/L (3.3-5.1); Sodium 141 mmol/L (135-145); Total Protein 7.8 g/dL (6.5-8.0)
[2025-11-17 13:18] LABS: Resp Syncy Virus RNA Qual PCR NEGATIVE (Negative); SARS COV2 PCR INHOUSE NEGATIVE (Negative)
[2025-11-17 14:27] VITALS: BP 125/89; PULSE 78; RESP 16; O2SAT 97
[2025-11-17] MEDS: Lactated Ringers 1,000 ML 999 ML IV ×2 (15:02→16:50)
[2025-11-17 16:48] VITALS: BP 128/73; PULSE 85; RESP 18; TEMP 36.8; O2SAT 98
[2025-11-17 18:11] VITALS: BP 117/74; PULSE 80; RESP 18; TEMP 37; O2SAT 98
--- OUTSIDE RECORDS SUMMARY | 2025-11-17 19:24 | XMS_ITS | Clinical Summary ---
Author Organization [employer] Address [address] [place] [address] Care Team Providers Care Stained Glass Joiner Name Role Phone Enriqueta Rice MD Primary [...] 5 Active Blood Glucose Monitoring Suppl (FreeStyle Brewster Lite) w/Device kitIndications:Pr ediabetes Use to test [...] diabetes mellitus (HCC),Hypertensio n associated with diabetes ([facility]) Inject 2.5 mg under the skin 1 (one) time per week. 2 mL 5 Active losartan (Cozaar) 50 MG tabletIndications :Hypertension associated with diabetes (HCC) TOME 1 TABLETA POR VIA ORAL TODOS LOS ALLEN 90 tablet 5 Active FREESTYLE LITE test stripIndications: Type 2 diabetes mellitus with hyperglycemia, without long-term current use of insulin ([facility]) Use to test blood sugar 3 times daily 100 each 12 5 09/23/20 26 Active Tirzepatide (Mounjaro) 5 MG/0.5ML solution auto-injectorIndi cations:Type 2 diabetes mellitus with hyperglycemia, without long-term current use of insulin ([facility]) Inject 5 mg under the skin 1 [...] Encounters Date Type Department Care Team Description 11/17/2025 Orders Only GENERIC EXTERNAL DATA DEPARTMENT Provider, Generic External Data 11/12/2025 Orders Only [facility] External Provider, [facility] 11/03/2025 Orders Only GENERIC EXTERNAL DATA DEPARTMENT Provider, Generic External Data 10/22/2025 Orders Only [facility] External Provider, [facility] 09/23/2025 9:30 AM EDT Office Visit [facility] [address] [place] [phone] Enriqueta Rice MD Bilateral carpal tunnel syndrome (Primary Dx); Type 2 diabetes mellitus with hyperglycemia, without long-term current use of insulin (HCC); Chronic pain of both feet 09/23/2025 Travel 09/22/2025 Telephone [facility] [address] [place] [address] Enriqueta Rice MD Chart Prep 09/21/2025 Refill [facility] [address] [place] [address] Sridevi Lomeli ANP Nasal congestion 09/16/2025 Patient Outreach [facility] [address] [place], [place] [phone] Enriqueta Rice MD Pre-visit Planning (SDOH unable to reach [facility] ) 08/19/2025 Refill [facility] [address] [place] [address] Sridevi Lomeli ANP Hypertension associated with diabetes (CMS/HCC) 08/19/2025 Results Follow-Up [facility] [address] [place] [phone] Sridevi Lomeli ANP Hemoglobin A1c, Lipid Panel, Standard, Hepatic Function Panel, Additional followed-up results: 12 from Last 3 Months Family History Medical [...] 2024-2 6 season) 2025 Diabetes: Hemoglobin A1C 02/01/2026 025, 08/17/2025 Lipid Panel 08/17/2026 08/17/2025 Tobacco Screening [...] Procedure Name Priority Date/Time Associated Diagnosis Comments MAGNESIUM Routine 11/17/2025 12:37 PM EST COMPREHENSIVE METABOLIC PANEL Routine 11/17/2025 12:37 PM EST CBC WITH AUTO DIFFERENTIAL Routine 11/17/2025 12:37 PM EST SARS COV2/INFLUENZA A/B AND RSV RNA QL NAAT Routine 11/17/2025 12:[address] ABDOMEN PELVIS W CONTRAST Routine 11/12/2025 1:23 PM EST HEMOGLOBIN A1C Routine 11/03/2025 3:10 PM EST XR FOOT 3+ VIEWS BILATERAL Routine 10/22/2025 11:36 AM EST POCT GLUCOSE Routine 09/23/2025 9:49 AM EDT Type 2 diabetes mellitus with hyperglycemia, without long-term current use of insulin (HCC) HEPATITIS C AB W/REFL TO HCV RNA, QN, PCR Routine 08/17/2025 1:18 PM EDT Screening examination for STI HIV 1/2 ANTIGEN/ANTIBODY, FOURTH GENERATION W/RFL Routine 08/17/2025 1:18 PM EDT Screening examination for STI LIPID PANEL, STANDARD Routine 08/17/2025 1:18 PM EDT Prediabetes from Last 3 Months or Most Recently Relevant to Health Maintenance Results * SARS-CoV-2 RNA, Influenza A/B, and RSV RNA, Ql NAAT (11/17/2025 12:37 PM EST) Influenza A PCR NEGATIVE Negative [facility] Influenza B PCR NEGATIVE Negative [facility] Resp Syncy Virus RNA Qual PCR NEGATIVE Negative [facility] SARS COV2 PCR NEGATIVE Negative [facility] Comment:All test results mus t be correlated with clinical findings.Negative results do not preclude SARS-CoV2, influenza Avirus, influenza B virus and/or RSV infectionand should not be used as the sole basis for treatment orother patient management decisions. Negative results must becombined with clinical observations, patient history, andepidemiological information.This test has not been evaluated for monitoring treatment ofinfection.This test has been authorized by the FDA under an EmergencyUse Authorization (EUA) for use by authorized laboratories.Testing performed on the [employer] GeneXpert utilizingreal-time RT-PCR.All SARS CoV2 and positive influenza A/B results arereported to [facility]. 11/17/2025 12:3 7 PM EST 11/17/2025 12:40 PM EST us Generic External Data Provider LAB MICROBIOLOGY - GENERAL ORDERABLES Final Result [facility] [address] [place] [phone] * (ABNORMAL) CBC auto differential (11/17/2025 12:37 PM EST) White Blood Count 11.8(H) 4.8 - 10.8 X10*3/uL [facility] Red Blood Count 6.44(H) 4.60 - 5.80 X10*6/uL [facility] Hemoglobin 18.7(H) 14.0 - 18.0 g/dl [facility] Hematocrit 54.8(H) 42.0 - 52.0 % [facility] Mean Corpuscular Volume 85.1 80.0 - 98.0 fL [facility] Mean Corpuscular Hemoglobin 29.0 27.0 - 33.0 pg [facility] Mean Corpuscular HGB Conc 34.1 31.0 - 36.0 g/dl [facility] Red Cell Distribution Width 12.0 11.0 - 16.0 % [facility] Platelet Count 257 160 - 400 X10*3/uL [facility] Mean Platelet Volume 11.3 9.4 - 12.4 fL [facility] Neutrophils Percent Auto 71.9 45 - 73 % [facility] Imm Gran Pct Auto 0.3 0.0 - 0.4 % [facility] Lymphocytes Percent Auto 14.8(L) 20 - 40 % [facility] Monocytes Percent Auto 5.1 2 - 11 % [facility] Eosinophils Percent Auto 7.7(H) 0 - 4 % [facility] Basophils Percent Auto 0.2 0 - 2 % [facility] NRBC Pct Auto 0.0 0.0 - 0.2 /100WBC [facility] Neutrophils Absolute Auto 8.5(H) 2.0 - 8.3 x10*3/uL [facility] Imm Gran Abs Auto 0.04(H) 0.00 - 0.03 X10*3/uL [facility] Lymphocytes Absolute Auto 1.8 1.2 - 4.9 X10*3/uL [facility] Monocytes Absolute Auto 0.6 0.1 - 1.2 X10*3/uL [facility] Eosinophils Absolute Auto 0.9(H) 0.0 - 0.4 X10*3/uL [facility] Basophils Absolute Auto 0.0 0.0 - 0.2 X10*3/uL [facility] NRBC Abs Auto 0.000 0.0 - 0.012 X10*3/uL [facility] 11/17/2025 12:3 7 PM EST 11/17/2025 12:40 PM EST us Generic External Data Provider LAB BLOOD ORDERAB LES Final Result [facility] [address] [place], [place] [phone] * Magnesium (11/17/2025 12:37 PM EST) Magnesium 2.3 1.6 - 2.6 mg/dL [facility] 11/17/2025 12:3 7 PM EST 11/17/2025 12:40 PM EST us Generic External Data Provider LAB BLOOD ORDERAB LES Final Result [facility] [address] [place], [place] [phone] * (ABNORMAL) Comprehensive Metabolic Panel (11/17/2025 12:37 PM EST) Sodium 141 135 - 145 mmol/L [facility] Potassium 4.5 3.3 - 5.1 mmol/L [facility] Chloride 104 96 - 108 mmol/L [facility] Carbon Dioxide 31(H) 22 - 29 mmol/L [facility] Anion Gap 11(L) 12 - 20 [facility] Urea Nitrogen (BUN) 15 9 - 16 mg/dL [facility] Creatinine, Serum 1.28 0.5 - 1.4 mg/dL [facility] Creatinine Clr Calc Pharmacy 88.9 [facility] Comment:eGFR (calculated fro m the MDRD study equation) and eCrCl(calculated from the Cockcroft-Gault equation) are based ondifferent parameters and may not yield comparable results.If eCrCl result is absurd, please check patient'sheight/weight. Estimated Glomerular Filt Rate >60 [facility] Comment:Chronic Kidney Disea se: Estimated GFR < 60 mL/min/1.33t7Vsescu Kidney Disease: Estimated GFR < 15 mL/min/1.73m2 Glucose 118(H) 60 - 115 mg/dL [facility] Calcium 9.3 8.4 - 10.2 mg/dL [facility] Bilirubin, Total 0.8 0.0 - 1.0 mg/dL [facility] Aspartate Amino Transferase 34 5 - 37 U/L [facility] Alanine Aminotransferase 78(H) 0 - 40 U/L [facility] Total Protein 7.8 6.5 - 8.0 g/dL [facility] Albumin Level 5.1(H) 3.5 - 5.0 g/dL [facility] Alkaline Phosphatase 70 39 - 117 U/L [facility] 11/17/2025 12:3 7 PM EST 11/17/2025 12:40 PM EST us Generic External Data Provider LAB BLOOD ORDERAB LES Final Result Performing Organization Address City/State/[facility] Co de Phone Number [facility] [address] [place] [phone] * CT Abdomen Pelvis w/ Contrast (11/12/2025 1:23 PM EST) Anatomical Region Laterality Modality Body, Pelvis, Abdomen Computed T omography 11/12/2025 1:23 PM EST Narrative 11/12/2025 2:34 PM EST [address] [address] [address] Scan Report Signed Patient: Flo Rowan MR#: [id number] : 1995 Acct:[id number] Age/Sex: 30 / M ADM Date: 11/12/25 Loc: HO.ED Attending Dr: Ordering Physician: Alexia Alfaro NP Date of Service: 11/12/25 Procedure(s): CT abdomen pelvis w IV con Accession Number(s): [id number] cc: Enriqueta Rice MD; Alexia Alfaro NP Report Number: [id number]: Total DLP = 701.00 mGy-cm Reason for Exam: RLQ tenderness EXAMINATION: CT ABDOMEN AND PELVIS WITH CONTRAST CLINICAL INFORMATION: Right lower quadrant tenderness COMPARISON: None available. TECHNIQUE: Multidetector volumetric images were obtained from the superior aspect of the liver through the pubic symphysis following administration 85 mL of Omnipaque 350 intravenous contrast. Sagittal and coronal reformatted images were obtained on the technologist's workstation. Oral contrast: No This CT examination was performed using dose optimization techniques as appropriate, variously including the following: *Automated exposure control *Adjustment of mA and/or kV according to patient size (this includes techniques or standardized protocols for targeted exams where dose is matched to indication/reason for exam; i.e. extremities or head) *Use of iterative reconstruction technique FINDINGS: LUNG BASES: There is minimal dependent atelectasis. LIVER, GALLBLADDER, AND BILIARY TREE: The liver is normal in size, shape, and attenuation. No focal hepatic lesion or biliary ductal dilatation is present. The gallbladder is unremarkable with no evidence of radiopaque gallstones, gallbladder wall thickening, or obvious pericholecystic inflammatory changes. PANCREAS: Unremarkable. SPLEEN: Unremarkable. ADRENAL GLANDS: Unremarkable. KIDNEYS AND URETERS: The kidneys are normal in size, shape, and attenuation. No hydronephrosis, hydroureter, or calculi seen. No perinephric stranding. BLADDER: Unremarkable. GASTROINTESTINAL TRACT: The small and large bowel are unremarkable. The appendix is partially fluid filled but not dilated or thick-walled. ABDOMINAL WALL: No significant hernia is appreciated. LYMPH NODES: Normal. VASCULAR: Unremarkable. PELVIC VISCERA: Unremarkable. OSSEOUS STRUCTURES: Unremarkable. CT/CT abdomen pelvis w IV con IMPRESSION: No abnormality detected that would explain the patient's right lower quadrant tenderness. Fleischner guidelines were followed. Electronically signed by: Chris Epps MD 11/12/2025 02:32 PM [facility] Dictated By: Chris Epps MD Signed By: <Electronically signed by Chris Epps MD in OV> 11/12/25 1432 DD/ 1323 TD/TT: 11/12/25 1400 Coffee Sampler: Procedure Note Donotuseinterpreter, Image - 11/12/[address] [place] [address] [address] Scan Report Signed Patient: Camacho Rowan#: [id number] : 1995Acct:[id number] Age/Sex: 30 / MADM Date: 11/12/25 Loc: HO.ED Attending Dr: Ordering Physician: Alexia Alfaro NP Date of Service: 11/12/25 Procedure(s): CT abdomen pelvis w IV con Accession Number(s): [id number] cc: Enriqueta Rice MD; Alexia Alfaro NP Report Number: [id number]: Total DLP = 701.00 mGy-cm Reason for Exam: RLQ tenderness EXAMINATION: CT ABDOMEN AND PELVIS WITH CONTRAST CLINICAL INFORMATION: Right lower quadrant tenderness COMPARISON: None available. TECHNIQUE: Multidetector volumetric images were obtained from the superior aspect of the liver through the pubic symphysis following administration 85 mL of Omnipaque 350 intravenous contrast. Sagittal and coronal reformatted images were obtained on the technologist's workstation. Oral contrast: No This CT examination was performed using dose optimization techniques as appropriate, variously including the following: *Automated exposure control *Adjustment of mA and/or kV according to patient size (this includes techniques or standardized protocols for targeted exams where dose is matched to indication/reason for exam; i.e. extremities or head) *Use of iterative reconstruction technique FINDINGS: LUNG BASES: There is minimal dependent atelectasis. LIVER, GALLBLADDER, AND BILIARY TREE: The liver is normal in size, shape, and attenuation. No focal hepatic lesion or biliary ductal dilatation is present. The gallbladder is unremarkable with no evidence of radiopaque gallstones, gallbladder wall thickening, or obvious pericholecystic inflammatory changes. PANCREAS: Unremarkable. SPLEEN: Unremarkable. ADRENAL GLANDS: Unremarkable. KIDNEYS AND URETERS: The kidneys are normal in size, shape, and attenuation. No hydronephrosis, hydroureter, or calculi seen. No perinephric stranding. BLADDER: Unremarkable. GASTROINTESTINAL TRACT: The small and large bowel are unremarkable. The appendix is partially fluid filled but not dilated or thick-walled. ABDOMINAL WALL: No significant hernia is appreciated. LYMPH NODES: Normal. VASCULAR: Unremarkable. PELVIC VISCERA: Unremarkable. OSSEOUS STRUCTURES: Unremarkable. CT/CT abdomen pelvis w IV con IMPRESSION: No abnormality detected that would explain the patient's right lower quadrant tenderness. Fleischner guidelines were followed. Electronically signed by: Chris Epps MD 11/12/2025 02:32 PM EST Dictated By: Chris Epps MD Signed By: <Electronically signed by Chris Epps MD in OV> 11/12/25 1432 DD/ 1323 TD/TT: 11/12/25 1400 Coffee Sampler: [facility] External Provider IMG CT PROCEDURES Final Result * (ABNORMAL) Hemoglobin A1c (11/03/2025 3:10 PM EST) Hemoglobin A1c 7.5(H) <6.0 % [facility] Comment:Hemoglobin A1C Refer ence Range Adults: 4.8 - 6.0 % Non diabetic: < 6.0 % Goal: < 7.0 %Additional Action Suggested: > 8.0 %Note: Hemoglobin A1c results are invalid for patients with abnormal amounts of HbF. Blood transfusions may impact the HbA1c concentration in the patient sample. Estimated Average Glucose 169 mg/dL [facility] Comment:eAG = Estimated ave rage glucose which is %A1C expressed asaverage glucose, using the formula of the M3V-ErissqsUqpwedp Glucose study (ADAG), Diabetes Care, Vol.31,#8,Jul. 2007 11/03/2025 3:10 PM EST 11/03/2025 6:36 PM EST us Generic External Data Provider LAB BLOOD ORDERAB LES Final Result Performing Organization Address City/State/[facility] Co de Phone Number [facility] [address] [place] [phone] * XR Foot 3+ Views Bilateral (10/22/2025 11:36 AM EST) Anatomical Region Laterality Modality Lower Extremities, Foot Bilateral Radiogra phic Imaging 10/22/2025 11:3 6 AM EST Narrative 10/22/2025 4:50 PM EST [address] [address] XRay Report Signed Patient: Flo Rowan MR#: [id number] : 1995 Acct:[id number] Age/Sex: 30 / M ADM Date: 10/22/25 Loc: SANDRA Attending Dr: James Barrow DPM Ordering Physician: James Barrow DPM Date of Service: 10/22/25 Procedure(s): XR Foot Yovani 3V Accession Number(s): [id number] cc: Enriqueta Rice MD; James Barrow DPM [...] by: Mars Burnham MD 10/22/2025 04:47 PM EST Dictated By: Mars Burnham MD Signed By: <Electronically signed by Mars Burnham MD in OV> 10/22/25 1647 DD/ 1136 TD/TT: 10/22/25 1141 Coffee Sampler: SHAGGY Procedure Note Donotuseinterpreter, Image - 10/22/2025 [place] [address] XRay Report Signed Patient: Camacho Rowan#: [id number] : 1995Acct:[id number] Age/Sex: 30 MADM Date: 10/22/25 Loc: HO.JACQUIEAY Attending Dr: James Barrow DPM Ordering Physician: James Barrow DPM Date of Service: 10/22/25 Procedure(s): XR Foot Yovani 3V Accession Number(s): [id number] cc: Enriqueta Rice MD; James Barrow DPM [...] by: Mars Burnham MD 10/22/2025 04:47 PM EST Dictated By: Mars Burhnam MD Signed By: <Electronically signed by Mars Burnham MD in OV> 10/22/25 1647 DD/ 1136 TD/TT: 10/22/25 1141 Coffee Sampler: SHAGYG [facility] External Provider IMG XR PROCEDURES Final Result * POCT Glucose (09/23/2025 9:49 AM EDT) [facility] Glucose Blood, POC 128 60 - 200 mg/dL QC Media Lot # [id number] Lot# Expiration Date Blood Capillary blood specimen / Unknown 09/23/2025 9:49 AM EDT Result [facility] Enriqueta Yi MD POINT OF CARE TEST EN TER/EDIT ORDERABLES Final Result * Hepatitis C Antibody with Reflex to HCV, RNA, Quantitative, Real-Time PCR (08/17/2025 1:18 PM EDT) [facility] Hepatitis C Antibody Nonreactive Nonreactive [facility] Comment:Antibodies to HCV no t detected; does not exclude early acuteHCV infection. Blood Venous blood specimen / Unknown 08/17/2025 1:18 PM EDT 08/17/2025 4:04 PM EDT Sridevi Lomeli ANP LAB BLOOD ORDERABLES Final Resul t Performing Organization Address [facility] Co de Phone Number [facility] [address] [place] [phone] * HIV-1/2 Antigen and Antibodies, Fourth Generation, with Reflexes (08/17/2025 1:18 PM EDT) HIV AB/AG Nonreactive Nonreactive [facility] Comment:HIV-1 p24 Ag and/or HIV-1/HIV-2 Ab not detected.A test result that is nonreactive does not exclude thepossibility of exposure to or infection with HIV-1 and/orHIV-2. Nonreactive results in this assay for individualswith prior exposure to HIV-1 and/or HIV-2 may be due toantigen and antibody levels that are below the limit ofdetection of this assay.[employer] HIV Ag/Ab Combo assay result andsupplemental assay results should be interpreted inconjunction with the patient's clinical presentation,history and other laboratory results. If the results areinconsistent with clinical evidence, additional testing issuggested to confirm the result. Blood Venous blood specimen / Unknown 08/17/2025 1:18 PM EDT 08/17/2025 4:04 PM EDT Sridevi Lomeli [facility] LAB BLOOD ORDERABLES Final Resul t Performing Organization Address [facility] Co de Phone Number [facility] [address] [place] [phone] * (ABNORMAL) Lipid Panel, Standard (08/17/2025 1:18 PM EDT) Triglycerides 315(H) <150 mg/dL [facility] Comment:Desirable Triglyceri de: less than 150 mg/dLBorderline High Triglyceride 150-199 mg/dLHigh Triglyceride: 200-499 mg/dLVery High Triglyceride: greater than or equal to 5OO mg/dL Cholesterol 174 <200 mg/dL [facility] Comment:Desirable Cholestero l: less than 200 mg/dLBorderline High Cholesterol: 200-239 mg/dLHigh Cholesterol: greater than 239 mg/dL LDL Cholesterol Calculated 82 <100 mg/dL [facility] Comment:Desirable LDL: less than 100 mg/dLNear Optimal/Above Optimal LDL: 110- 129 mg/dLBorderline High LDL: 130-159 mg/dLHigh LDL: 160-189 mg/dLVery High LDL: greater than or equal to 190 mg/dL HDL Cholesterol 29(L) >40 mg/dL [facility] Comment:Desirable HDL: great er than 40 mg/dL Note: This HDL assay may give artificially low results in patients with liver disease. Blood Venous blood specimen / Unknown 08/17/2025 1:18 PM EDT 08/17/2025 4:04 PM EDT us [facility] LAB BLOOD ORDERABLES Final Resul t [facility] [address] [place] [address] [phone] from Last 3 Months or Most Recently Relevant to Health Maintenance Insurance [facility] C3 Care Teams Stained Glass Joiner Relationship Specialty Start Date End Date Enriqueta Rice MD [address] [place] [address] PCP - General Internal Medicine 09/23/25
--- OUTSIDE RECORDS SUMMARY | 2025-11-17 19:24 | XMS_ITS | Encounter Summary ---
Author Organization [employer] Address [address] [place] [address] Care Team Providers Care Loss Prevention Detective Name Role Phone Enriqueta Rice MD Primary Care Provide r Reason for Visit * Reason Comments Med Refill Encounter Details Date Type Department Care Team ([facility] st Contact Info) Description 09/21/2025 Refill [facility] [address] [place], [place] [phone] Sridevi Lomeli, ANP [address] [place] [phone] Nasal congestion Social History Tobacco Use Types [...] sinuses documented in this encounter Care Teams Loss Prevention Detective Relationship Specialty Start Date End Date Enriqueta Rice MD [address] [place] [phone] PCP - General Internal Medicine 09/23/25 documented as of this encounter
--- OUTSIDE RECORDS SUMMARY | 2025-11-17 19:24 | XMS_ITS | Encounter Summary ---
Author Organization [employer] Address [address] [facility] [address] [place] [address] Care Team Providers Care Sample Checker Name Role Phone Enriqueta Rice MD Primary Care Provide r Encounter Details Date Type Department Care Team (Late st Contact Info) Description 11/17/2025 Orders Only GENERIC EXTERNAL DATA DEPARTMENT Provider, Generic External Data Social History Tobacco Use Types Packs/Day Years [...] on file documented as of this encounter Procedures Procedure Name Priority Date/Time Associated Diagnosis Comments SARS COV2/INFLUENZA A/B AND RSV RNA QL NAAT Routine 11/17/2025 12:37 PM EST CBC WITH AUTO DIFFERENTIAL Routine 11/17/2025 12:37 PM EST MAGNESIUM Routine 11/17/2025 12:37 PM EST COMPREHENSIVE METABOLIC PANEL Routine 11/17/2025 12:37 PM EST documented in this encounter Results * SARS-CoV-2 RNA, Influenza A/B, and RSV RNA, Ql NAAT (11/17/2025 12:37 PM EST) Influenza A PCR NEGATIVE Negative [facility] Influenza B PCR NEGATIVE Negative [facility] Resp Syncy Virus RNA Qual PCR NEGATIVE Negative [facility] SARS COV2 PCR NEGATIVE Negative [facility] Comment:All test results mus t be [...] use by authorized laboratories.Testing performed on the [employer] GeneXpert utilizingreal-time RT-PCR.All SARS CoV2 and positive influenza A/B results arereported to [facility]. 11/17/2025 12:3 7 PM EST 11/17/2025 12:40 PM EST Generic External Data Provider LAB MICROBIOLOGY - GENERAL ORDERABLES Final Result Performing Organization Address [facility]/ZIP Co de Phone Number [facility] [address] [place] [phone] * Magnesium (11/17/2025 12:37 PM EST) [facility] Magnesium 2.3 1.6 - 2.6 mg/dL [facility] 11/17/2025 12:3 7 PM EST 11/17/2025 12:40 PM EST Generic External Data Provider LAB BLOOD ORDERAB LES Final Result Performing Organization Address [facility]/ZIP Co de Phone Number [facility] [address] [place] [phone] * (ABNORMAL) Comprehensive Metabolic Panel (11/17/2025 12:37 PM EST) Sodium 141 135 - 145 mmol/L [facility] Potassium 4.5 3.3 - 5.1 mmol/L [facility] Chloride 104 96 - 108 mmol/L [facility] Carbon Dioxide 31(H) 22 - 29 mmol/L [facility] Anion Gap 11(L) 12 - 20 [facility] Urea Nitrogen (BUN) 15 9 - 16 mg/dL [facility] Creatinine, Serum 1.28 0.5 - 1.4 mg/dL [facility] Creatinine Clr Calc Pharmacy 88.9 [facility] Comment:eGFR (calculated fro m the MDRD study equation) and eCrCl(calculated from the Cockcroft-Gault equation) are based ondifferent parameters and may not yield comparable results.If eCrCl result is absurd, please check patient'sheight/weight. Estimated Glomerular Filt Rate >60 [facility] Comment:Chronic Kidney Disea se: Estimated GFR < 60 mL/min/1.44u3Tppcyp Kidney Disease: Estimated GFR < 15 mL/min/1.73m2 Glucose 118(H) 60 - 115 mg/dL [facility] Calcium 9.3 8.4 - 10.2 mg/dL [facility] Bilirubin, Total 0.8 0.0 - 1.0 mg/dL [facility] Aspartate Amino Transferase 34 5 - 37 U/L [facility] Alanine Aminotransferase 78(H) 0 - 40 U/L [facility] Total Protein 7.8 6.5 - 8.0 g/dL [facility] Albumin Level 5.1(H) 3.5 - 5.0 g/dL [facility] Alkaline Phosphatase 70 39 - 117 U/L [facility] 11/17/2025 12:3 7 PM EST 11/17/2025 12:40 PM EST us Generic External Data Provider LAB BLOOD ORDERAB LES Final Result [facility] [address] [place] [phone] * (ABNORMAL) CBC auto differential (11/17/2025 12:37 PM EST) White Blood Count 11.8(H) 4.8 - 10.8 X10*3/uL [facility] Red Blood Count 6.44(H) 4.60 - 5.80 X10*6/uL [facility] Hemoglobin 18.7(H) 14.0 - 18.0 g/dl [facility] Hematocrit 54.8(H) 42.0 - 52.0 % [facility] Mean Corpuscular Volume 85.1 80.0 - 98.0 fL [facility] Mean Corpuscular Hemoglobin 29.0 27.0 - 33.0 pg [facility] Mean Corpuscular HGB Conc 34.1 31.0 - 36.0 g/dl [facility] Red Cell Distribution Width 12.0 11.0 - 16.0 % [facility] Platelet Count 257 160 - 400 X10*3/uL [facility] Mean Platelet Volume 11.3 9.4 - 12.4 fL [facility] Neutrophils Percent Auto 71.9 45 - 73 % [facility] Imm Gran Pct Auto 0.3 0.0 - 0.4 % [facility] Lymphocytes Percent Auto 14.8(L) 20 - 40 % [facility] Monocytes Percent Auto 5.1 2 - 11 % [facility] Eosinophils Percent Auto 7.7(H) 0 - 4 % [facility] Basophils Percent Auto 0.2 0 - 2 % [facility] NRBC Pct Auto 0.0 0.0 - 0.2 /100WBC [facility] Neutrophils Absolute Auto 8.5(H) 2.0 - 8.3 x10*3/uL [facility] Imm Gran Abs Auto 0.04(H) 0.00 - 0.03 X10*3/uL [facility] Lymphocytes Absolute Auto 1.8 1.2 - 4.9 X10*3/uL [facility] Monocytes Absolute Auto 0.6 0.1 - 1.2 X10*3/uL [facility] Eosinophils Absolute Auto 0.9(H) 0.0 - 0.4 X10*3/uL [facility] Basophils Absolute Auto 0.0 0.0 - 0.2 X10*3/uL [facility] NRBC Abs Auto 0.000 0.0 - 0.012 X10*3/uL [facility] 11/17/2025 12:3 7 PM EST 11/17/2025 12:40 PM EST us Generic External Data Provider LAB BLOOD ORDERAB LES Final Result Performing Organization Address City/State/[facility] Co de Phone Number [facility] [address] [place] [phone] documented in this encounter Visit Diagnoses Not on filedocumented in this encounter Care Teams Sample Checker Relationship Specialty Start Date End Date Enriqueta Rice MD [address] [place] [phone] PCP - General Internal Medicine 09/23/25 documented as of this encounter
--- OUTSIDE RECORDS SUMMARY | 2025-11-17 19:24 | XMS_ITS | Encounter Summary ---
Author Organization [employer] Address [address] [facility] [address] [place] [address] Care Team Providers Care Foot And Ankle Surgeon Name Role Phone Enriqueta Rice MD Primary Care Provide r Encounter Details Date Type Department Care Team (Late st Contact Info) Description 11/12/2025 Orders Only [facility] External Provider, [facility] Social History Tobacco Use Types Packs/Day Years [...] Procedure Name Priority Date/Time Associated Diagnosis Comments CT ABDOMEN PELVIS W CONTRAST Routine 11/12/2025 1:23 PM EST documented in this encounter Results * CT Abdomen Pelvis w/ Contrast (11/12/2025 1:23 PM EST) Anatomical Region Laterality Modality Body, Pelvis, Abdomen Computed T omography 11/12/2025 1:23 PM EST Narrative 11/12/2025 2:34 PM EST [address] [address] [address] Scan Report Signed Patient: Flo Rowan MR#: [id number] : 1995 Acct:[id number] Age/Sex: 30 / M ADM Date: 11/12/25 Loc: HO.ED Attending Dr: Ordering Physician: Alexia Alfaro NP Date of Service: 11/12/25 Procedure(s): CT abdomen pelvis w IV con Accession Number(s): [id number] cc: Enriqueta Rice MD; Alexia Alfaro NP Report Number: [id number]: Total DLP = 701.00 mGy-cm Reason for [...] by: Chris Epps MD 11/12/2025 02:32 PM [facility] Dictated By: Chris Epps MD Signed By: <Electronically signed by Chris Epps MD in OV> 11/12/25 1432 DD/ 1323 TD/TT: 11/12/25 1400 Clinical Technologist: Procedure Note Donotuseinterpreter, Image - 11/12/[address] [place] [address] [address] Scan Report Signed Patient: Camacho Rowan#: [id number] : 1995Acct:[id number] Age/Sex: 30 / MADM Date: 11/12/25 Loc: HO.ED Attending Dr: Ordering Physician: Alexia Alfaro NP Date of Service: 11/12/25 Procedure(s): CT abdomen pelvis w IV con Accession Number(s): [id number] cc: Enriqueta Rice MD; Alexia Alfaro NP Report Number: [id number]: Total DLP = 701.00 mGy-cm Reason for [...] by: Chris Epps MD 11/12/2025 02:32 PM [facility] Dictated By: Chris Epps MD Signed By: <Electronically signed by Chris Epps MD in OV> 11/12/25 1432 DD/ 1323 TD/TT: 11/12/25 1400 Clinical Technologist: [facility] External Provider IMG CT PROCEDURES Final Result documented in this encounter Visit Diagnoses Not on filedocumented in this encounter Care Teams Foot And Ankle Surgeon Relationship Specialty Start Date End Date Enriqueta Rice MD [address] [place] [phone] PCP - General Internal Medicine 09/23/25 documented as of this encounter
== END 2025-11-17 18:12 | disposition home or self-care (01) ==
PROVIDERS: Registered Nurse Emergency; Emergency Provider Emergency Medicine; PCP Internal Medicine
DX: R11.2 Nausea with vomiting, unspecified (principal); R10.23 Pelvic and perineal pain bilateral; R19.7 Diarrhea, unspecified; Z79.899 Other long term (current) drug therapy; Z03.818 Encounter for observation for suspected exposure to other biological agents ruled out
CPT/HCPCS: 80053; 83735; 85025; 87637; 96361; 96374; 99283; 99284; J2405; J7120